=== PATIENT | male | born 1955 | race Caucasian/White ===

== ENCOUNTER 2019-05-28 11:51 | Emergency (ER) | payer MEDICARE, OTHER ==
[2019-05-28] MEDS: Sodium Chloride 0.9% 500 ML IV SCH (12:28)
--- NOTE | 2019-05-28 12:29 | EDM.PDOC ---
ED HPI GENERAL MEDICAL PROBLEM - General Chief Complaint: General Stated Complaint: weakness,nausea Time Seen by Provider: 05/28/19 11:55 Source of Information: Reports: Patient History Limitations: Reports: No Limitations - History of Present Illness INITIAL COMMENTS - FREE TEXT/NARRATIVE: Patient is a 63-year-old male who came in to the ER for evaluation of generalized weakness fatigue headaches some nausea chills just generally not feeling well and weakness this is been going on for about 3 days. Onset: Gradual Duration: Day(s):, Improving Location: Reports: Generalized Quality: Reports: Ache Severity: Mild Improves with: Reports: None Worsens with: Reports: Other (Activity) Context: Reports: Other Associated Symptoms: Reports: Fever/Chills, Nausea/Vomiting headache Pain Score (Numeric/FACES): 2 - Related Data Allergies Allergy/AdvReac Type Severity Reaction Status Date / Time clarithromycin [From Biaxin] Allergy Unknown unknown Verified 05/28/19 11:57 gabapentin [From Neurontin] Allergy Lightheaded Verified 05/28/19 11:57 ness NSAIDS (Non-Steroidal Allergy Renal Verified 05/28/19 11:57 Anti-Inflamma Failure Sulfa (Sulfonamide Allergy Rash Verified 05/28/19 11:57 Antibiotics) Home Meds: Home Meds Aspirin [Low Dose Aspirin EC] 81 mg PO DAILY 06/25/13 [History] Multivit-Min/FA/Lycopene/Lut [Centrum Silver] 1 each PO DAILY 06/25/13 [History] Mycophenolate [Myfortic] 720 mg PO BID 06/25/13 [History] Simvastatin 10 mg PO BEDTIME 06/25/13 [History] Sodium Bicarbonate 1,300 mg PO BID 06/25/13 [History] Cholecalciferol (Vitamin D3) [Vitamin D3] 1,000 unit PO DAILY 03/10/16 [History] Benzonatate 100 mg PO Q6HR PRN 04/01/16 [History] Furosemide 20 mg PO ASDIRECTED PRN 09/25/17 [History] Magnesium 500 mg PO DAILY 09/25/17 [History] Pantoprazole Sodium [Protonix] 40 mg PO DAILY 09/25/17 [History] predniSONE [Prednisone] 5 mg PO DAILY 10/12/17 [History] Tacrolimus [Prograf] 1.5 mg PO QPM 03/29/18 [History] Montelukast [Singulair] 10 mg PO DAILY PRN 10/14/18 [History] Acetaminophen [Tylenol Extra Strength] 500 mg PO Q6HR PRN 05/28/19 [History] Calcium Carbonate [Calcium] 1,000 mg PO DAILY 05/28/19 [History] Ibandronate Sodium [Boniva] 150 mg PO ASDIRECTED 05/28/19 [History] Linezolid [Zyvox] 600 mg PO Q12H 05/28/19 [History] Nystatin [Nystop] 60 gm TP ASDIRECTED PRN 05/28/19 [History] Polyethylene Glycol 3350 [MiraLAX] 1 tsp PO DAILY PRN 05/28/19 [History] Past Medical History HEENT History: Reports: Other (See Below) Other HEENT History: wears glasses Cardiovascular History: Reports: Hypertension, CO, Stents Respiratory History: Reports: Pneumonia, Recurrent Other Gastrointestinal History: NA Genitourinary History: Reports: Chronic Renal Insuffiency, Dialysis, UTI, Recurrent Endocrine/Metabolic History: Reports: Diabetes, Type I Oncologic (Cancer) History: Reports: Other (See Below) Other Oncologic History: skin cancer to ear, ear lobe, bilateral forearms and forehead - Infectious Disease History Infectious Disease History: Reports: Chicken Pox, Measles, MRSA Other Infectious Disease History: HX. MRSA to open wound on hurley - Past Surgical History GI Surgical History: Reports: Other (See Below) Male Surgical History: Reports: Other (See Below) Other Male Surgeries/Procedures: Nephrostomy Tube Musculoskeletal Surgical History: Reports: ORIF Social & Family History - Tobacco Use Smoking Status *Q: Never Smoker - Recreational Drug Use Recreational Drug Use: No ED ROS GENERAL - Review of Systems Review Of Systems: See Below Constitutional: Reports: Chills, Weakness HEENT: Reports: No Symptoms Respiratory: Reports: Cough, Sputum (Secondary to sinus drainage) Cardiovascular: Reports: No Symptoms Endocrine: Reports: No Symptoms GI/Abdominal: Reports: No Symptoms, Nausea, Other (Dry heaves) : Reports: No Symptoms Musculoskeletal: Reports: Muscle Stiffness Skin: Reports: No Symptoms Neurological: Reports: No Symptoms ED EXAM, GENERAL - Physical Exam Exam: See Below Free Text/Narrative:: Patient is a 62-year-old transplant patient who was seen not feeling well generalized aches and pains has been on Zyvox for allowing since Jovon evening was seen in the ER with the above symptoms at this time a UA showed his white count to be 17.2 Was Good BNP Was 4791 General Appearance: No Apparent Distress Ears: Normal External Exam Ear Exam: Bilateral Ear: Auricle Normal, Canal Normal, TM normal Nose: Normal Inspection Throat/Mouth: Normal Inspection, Normal Lips, Normal Teeth, Normal Gums, Normal Oropharynx, Normal Voice, No Airway Compromise Head: Atraumatic, Normocephalic Neck: Normal Inspection, Supple, Non-Tender, Full Range of Motion Respiratory/Chest: No Respiratory Distress, Lungs Clear, Normal Breath Sounds, No Accessory Muscle Use, Chest Non-Tender Cardiovascular: Normal Peripheral Pulses, Regular Rate, Rhythm, No Edema, No Gallop, No JVD, No Murmur, No Rub GI/Abdominal: Normal Bowel Sounds, Soft, Non-Tender, No Organomegaly, No Distention, No Abnormal Bruit, No Mass (Male) Exam: Deferred Rectal (Males) Exam: Deferred Extremities: Normal Inspection, Normal Range of Motion, Non-Tender, Normal Capillary Refill, No Pedal Edema Neurological: Alert, Oriented, CN II-XII Intact, Normal Cognition, Normal Gait, Normal Reflexes, No Motor/Sensory Deficits Psychiatric: Normal Affect Skin Exam: Warm Course - Vital Signs Last Recorded V/S: Last Vital Signs Temp 100.3 F 05/28/19 13:54 Pulse 83 05/28/19 11:54 Resp 18 05/28/19 11:54 BP 134/60 05/28/19 11:54 Pulse Ox 94 L 05/28/19 11:54 - Orders/Labs/Meds Orders: Active Orders 24 hr Category Date Time Status Chest 2V [CR] Stat Exams 05/28/19 12:20 Ordered CULTURE BLOOD [BC] Stat Lab 05/28/19 12:10 Ordered CULTURE URINE [RM] Stat Lab 05/28/19 12:14 Ordered Piperacillin/Tazobactam [Zosyn] 3.375 gm Med 05/28/19 14:00 Ordered Sodium Chloride 0.9% [Normal Saline] 100 ml IV Q6H Sodium Chloride 0.9% @ 100 MLS/HR(500ml) Med 05/28/19 12:15 Ordered Sodium Chloride 0.9% [Normal Saline] 500 ml IV ASDIRECTED Sodium Chloride 0.9% [Saline Flush] Med 05/28/19 12:12 Ordered 10 ml FLUSH ASDIRECTED PRN Saline Lock Insert [OM.PC] Stat Oth 05/28/19 12:12 Ordered Medication Orders Sodium Chloride (Normal Saline) 500 mls @ 100 mls/hr IV ASDIRECTED RIMA Last Admin: 05/28/19 12:28 Dose: 100 mls/hr Piperacillin Sod/Tazobactam (Sod 3.375 gm/ Sodium Chloride) 100 mls @ 200 mls/ hr IV Q6H [facility] Last Admin: 05/28/19 14:06 Dose: 200 mls/hr Sodium Chloride (Saline Flush) 10 ml FLUSH ASDIRECTED PRN PRN Reason: Keep Vein Open Last Admin: 05/28/19 12:32 Dose: 10 ml Labs: Laboratory Tests 05/28/19 05/28/19 05/28/19 Range/Units 12:20 12:20 12:55 WBC 17.2 H (4.0-10.2) K/uL RBC 4.58 (4.33-5.41) M/uL Hgb 12.7 L (13.1-16.8) g/dL Hct 42.2 (39.0-49.0) % MCV 92.1 D (84.0-98.0) fL MCH 27.7 L (28.2-33.3) pg MCHC 30.1 L (31.7-36.0) g/dL RDW 15.1 H (11.2-14.1) % Plt Count 178 (150-350) K/uL Neut % (Auto) 91.6 H (45.0-80.0) % Lymph % (Auto) 1.8 L (10.0-50.0) % [place] % (Auto) 6.5 (2.0-14.0) % Eos % (Auto) 0.0 (0.0-5.0) % Baso % (Auto) 0.1 (0.0-2.0) % Neut # (Auto) 15.72 H (1.40-7.00) K/uL Lymph # (Auto) 0.31 L (0.50-3.50) K/uL [place] # (Auto) 1.11 H (0.00-1.00) K/uL Eos # (Auto) 0.00 (0.00-0.50) K/uL Baso # (Auto) 0.01 (0.00-0.20) K/uL Sodium 136 (136-145) mmol/L Potassium 4.6 (3.5-5.1) mmol/L Chloride 99 (98-107) mmol/L Carbon Dioxide 25.3 (21.0-32.0) mmol/L BUN 36 H (7-18) mg/dL Creatinine 2.27 H (0.51-1.17) mg/dL Est Cr Clr Drug Dosing 34.39 mL/min Estimated GFR (MDRD) 29 mL/min Glucose 147 H (74-106) mg/dL Lactic Acid (0.4-2.0) mmol/L Calcium 8.1 L (8.5-10.1) mg/dL Magnesium 2.2 (1.8-2.4) mg/dL Total Bilirubin 0.8 (0.2-1.0) mg/dL AST 24 (15-37) U/L ALT 20 (12-78) U/L Alkaline Phosphatase 78 (46-116) IU/L NT-Pro-B Natriuret Pep (0-125) pg/mL Total Protein 7.1 (6.4-8.2) g/dL Albumin 3.1 L (3.4-5.0) g/dL Specimen Type Urinneph Urine Color Yellow Urine Appearance Slightly cloudy Urine pH 7.0 (5.0-9.0) Ur Specific [place] 1.015 (1.005-1.030) Urine Protein 100 H (NEGATIVE) mg/dL Urine Glucose (UA) Negative (NEGATIVE) mg/dL Urine Ketones Negative (NEGATIVE) mg/dL Urine Occult Blood Large H (NEGATIVE) Urine Nitrite Negative (NEGATIVE) Urine Bilirubin Negative (NEGATIVE) Urine Urobilinogen 0.2 (0.2-1.0) E.U./dL Ur Leukocyte Esterase Small H (NEGATIVE) Urine RBC 10-20 H /HPF Urine WBC 50-75 H /HPF Urine Bacteria Many H (NONE TO FEW) /HPF 05/28/19 05/28/19 Range/Units 12:59 12:59 WBC (4.0-10.2) K/uL RBC (4.33-5.41) M/uL Hgb (13.1-16.8) g/dL Hct (39.0-49.0) % MCV (84.0-98.0) fL MCH (28.2-33.3) pg MCHC (31.7-36.0) g/dL RDW (11.2-14.1) % Plt Count (150-350) K/uL Neut % (Auto) (45.0-80.0) % Lymph % (Auto) (10.0-50.0) % [place] % (Auto) (2.0-14.0) % Eos % (Auto) (0.0-5.0) % Baso % (Auto) (0.0-2.0) % Neut # (Auto) (1.40-7.00) K/uL Lymph # (Auto) (0.50-3.50) K/uL [place] # (Auto) (0.00-1.00) K/uL Eos # (Auto) (0.00-0.50) K/uL Baso # (Auto) (0.00-0.20) K/uL Sodium (136-145) mmol/L Potassium (3.5-5.1) mmol/L Chloride (98-107) mmol/L Carbon Dioxide (21.0-32.0) mmol/L BUN (7-18) mg/dL Creatinine (0.51-1.17) mg/dL Est Cr Clr Drug Dosing mL/min Estimated GFR (MDRD) mL/min Glucose (74-106) mg/dL Lactic Acid 1.6 (0.4-2.0) mmol/L Calcium (8.5-10.1) mg/dL Magnesium (1.8-2.4) mg/dL Total Bilirubin (0.2-1.0) mg/dL AST (15-37) U/L ALT (12-78) U/L Alkaline Phosphatase (46-116) IU/L NT-Pro-B Natriuret Pep 4791 H (0-125) pg/mL Total Protein (6.4-8.2) g/dL Albumin (3.4-5.0) g/dL Specimen Type Urine Color Urine Appearance Urine pH (5.0-9.0) Ur Specific [place] (1.005-1.030) Urine Protein (NEGATIVE) mg/dL Urine Glucose (UA) (NEGATIVE) mg/dL Urine Ketones (NEGATIVE) mg/dL Urine Occult Blood (NEGATIVE) Urine Nitrite (NEGATIVE) Urine Bilirubin (NEGATIVE) Urine Urobilinogen (0.2-1.0) E.U./dL Ur Leukocyte Esterase (NEGATIVE) Urine RBC /HPF Urine WBC /HPF Urine Bacteria (NONE TO FEW) /HPF Meds: Medications Generic Name Dose Route Start Last Admin Trade Name Freq PRN Reason Stop Dose Admin Sodium Chloride 500 mls @ 100 mls/hr 05/28/19 12:15 05/28/19 12:28 Normal Saline IV 100 mls/hr ASDIRECTED RIMA Administration Piperacillin Sod/Tazobactam 100 mls @ 200 mls/hr 05/28/19 14:00 05/28/19 14: 06 Sod 3.375 gm/ Sodium Chloride IV 200 mls/hr Q6H RIMA Administration Sodium Chloride 10 ml 05/28/19 12:12 05/28/19 12:32 Saline Flush FLUSH 10 ml ASDIRECTED PRN Administration Keep Vein Open Discontinued Medications Generic Name Dose Route Start Last Admin Trade Name Freq PRN Reason Stop Dose Admin Ondansetron HCl 4 mg 05/28/19 12:29 05/28/19 12:31 Zofran IVPUSH 05/28/19 12:30 4 mg ONETIME ONE Administration Departure - Departure Time of Disposition: 14:27 Disposition: DC/Tfer to [facility] Clinical Impression: CHF, Congestive heart failure - Discharge Information *PRESCRIPTION DRUG MONITORING PROGRAM REVIEWED*: No *COPY OF PRESCRIPTION DRUG MONITORING REPORT IN PATIENT JOSEPH: No Referrals: Maria D Ariza [employer] [Primary Care Provider] - Forms: ED Department Discharge - My Orders Last 24 Hours: My Active Orders 05/28/19 12:10 CULTURE BLOOD [BC] Stat 05/28/19 12:12 Sodium Chloride 0.9% [Saline Flush] 10 ml FLUSH ASDIRECTED PRN Saline Lock Insert [OM.PC] Stat 05/28/19 12:14 CULTURE URINE [RM] Stat 05/28/19 12:15 Sodium Chloride 0.9% @ 100 MLS/HR(500ml) Sodium Chloride 0.9% [Normal Saline] 500 ml IV ASDIRECTED 05/28/19 12:20 Chest 2V [CR] Stat 05/28/19 14:00 Piperacillin/Tazobactam [Zosyn] 3.375 gm Sodium Chloride 0.9% [Normal Saline] 100 ml IV Q6H - Assessment/Plan Last 24 Hours: My Active Orders 05/28/19 12:10 CULTURE BLOOD [BC] Stat 05/28/19 12:12 Sodium Chloride 0.9% [Saline Flush] 10 ml FLUSH ASDIRECTED PRN Saline Lock Insert [OM.PC] Stat 05/28/19 12:14 CULTURE URINE [RM] Stat 05/28/19 12:15 Sodium Chloride 0.9% @ 100 MLS/HR(500ml) Sodium Chloride 0.9% [Normal Saline] 500 ml IV ASDIRECTED 05/28/19 12:20 Chest 2V [CR] Stat 05/28/19 14:00 Piperacillin/Tazobactam [Zosyn] 3.375 gm Sodium Chloride 0.9% [Normal Saline] 100 ml IV Q6H
[2019-05-28] MEDS: Ondansetron 4 MG/2 ML SDV IVPUSH ONE (12:31)
[2019-05-28] MEDS: Sodium Chloride 0.9% 10 ML Syringe FLUSH PRN (12:32)
[2019-05-28] MEDS: Piperacillin/Tazobactam 3.375 GM in Sodium Chloride 0.9% 100 ML IV SCH (14:06)
[2019-05-28] MEDS: Acetaminophen 325 MG Tab PO PRN (14:43)
[2019-05-28 15:01] VITALS: BP 127/59; PULSE 95
== END 2019-05-28 14:54 ==
LOC: LL.ED 11:51
DX: I13.0 Hypertensive heart and chronic kidney disease with heart failure and stage 1 through stage 4 chronic kidney disease, or unspecified chronic kidney disease (principal); I50.9 Heart failure, unspecified; E10.22 Type 1 diabetes mellitus with diabetic chronic kidney disease; N18.9 Chronic kidney disease, unspecified; I25.2 Old myocardial infarction; Z79.82 Long term (current) use of aspirin; Z79.899 Other long term (current) drug therapy; Z88.1 Allergy status to other antibiotic agents; Z88.2 Allergy status to sulfonamides; Z88.6 Allergy status to analgesic agent; Z88.8 Allergy status to other drugs, medicaments and biological substances; Z99.2 Dependence on renal dialysis; Z95.5 Presence of coronary angioplasty implant and graft
CPT/HCPCS: 36415; 71046; 80053; 81001; 83605; 83735; 83880; 85025; 87040; 87086; 87088; 87186; 96361; 96365; 96375; 99285-25; A9270-GY; J2405; J2543; J7040; J7050

== ENCOUNTER → 2019-06-09 | Outpatient (CLI) | payer MEDICARE, OTHER | LOC: LL.LAB 08:18 | PROVIDERS: ATTEND Internal Medicine | DX: Z48.22 Encounter for aftercare following kidney transplant (principal); Z79.899 Other long term (current) drug therapy | CPT/HCPCS: 80197 ==

== ENCOUNTER 2021-05-17 11:35 | Inpatient (IN) | payer MEDICARE, OTHER ==
[2021-05-17] MEDS ORDERED: Lactated Ringers 1,000 ML IV ONE ×3 (12:08→14:08)
[2021-05-17] MEDS ORDERED: Ondansetron 4 MG/2 ML SDV IV ONE (12:08)
[2021-05-17] MEDS ORDERED: Cefepime 2 GM in Sodium Chloride 0.9% 100 ML IV ONE (12:08)
[2021-05-17 13:47] LABS: ANION GAP 14.2 meq/L (7-15)
--- NOTE | 2021-05-17 14:04 | EDM.PDOC ---
ED HPI GENERAL MEDICAL PROBLEM - General Chief Complaint: General Stated Complaint: hypotention,Nausea,Weakness Time Seen by Provider: 05/17/21 12:07 Source of Information: Reports: Patient History Limitations: Reports: No Limitations - History of Present Illness INITIAL COMMENTS - FREE TEXT/NARRATIVE: Patient comes emergency department today from the clinic for further evaluations of hypotension and concerns for urinary tract infection. Patient has a longstanding history of a kidney and pancreas transplant as well as CKD 3. He has a urostomy tube he relates that drains his bladder due to recurrent urinary tract infections and sepsis. Last time he had sepsis and UTI was about 2019. Yesterday he had some generalized malaise and fatigue. Today he has developed generalized weakness some nausea chills. No fever. No cough or congestion or difficulty breathing. No chest pain palpitation. No lightheadedness or dizziness or syncope. No abdominal pain. No black tarry stools. No rash lesions or sores. He has concerns for a urinary tract infection as this is how he typically feels. His blood pressure as of note in the clinic was in the eighties systolically. right heel Pain Score (Numeric/FACES): 2 - Related Data Allergies Allergy/AdvReac Type Severity Reaction Status Date / Time clarithromycin [From Biaxin] Allergy Unknown unknown Verified 05/17/21 11:47 gabapentin [From Neurontin] Allergy Lightheaded Verified 05/17/21 11:47 ness NSAIDS (Non-Steroidal Allergy Renal Verified 05/17/21 11:47 Anti-Inflamma Failure Sulfa (Sulfonamide Allergy Rash Verified 05/17/21 11:47 Antibiotics) Home Meds: Home Meds Aspirin [Low Dose Aspirin EC] 81 mg PO DAILY 06/25/13 [History] Multivit-Min/FA/Lycopene/Lut [Centrum Silver] 1 each PO DAILY 06/25/13 [History] Mycophenolate [Myfortic] 720 mg PO Q12HR 06/25/13 [History] Simvastatin 10 mg PO BEDTIME 06/25/13 [History] Sodium Bicarbonate 1,300 mg PO BID 06/25/13 [History] Cholecalciferol (Vitamin D3) [Vitamin D3] 2,000 unit PO DAILY 03/10/16 [History] Benzonatate 1 - 2 cap PO TID PRN 04/01/16 [History] Furosemide 20 mg PO DAILY PRN 09/25/17 [History] Pantoprazole Sodium [Protonix] 40 mg PO DAILY 09/25/17 [History] predniSONE [Prednisone] 5 mg PO DAILY 10/12/17 [History] Tacrolimus [Prograf] 1.5 mg PO Q12HR 03/29/18 [History] Acetaminophen [Tylenol Extra Strength] 500 mg PO Q6HR PRN 05/28/19 [History] Ibandronate Sodium [Boniva] 150 mg PO Q30D 05/28/19 [History] Nystatin [Nystop] 60 gm TP ASDIRECTED PRN 05/28/19 [History] Amoxicillin 4 tab PO ASDIRECTED PRN 08/20/20 [History] Ondansetron [Zofran ODT] 4 mg PO ASDIRECTED PRN 08/20/20 [History] Past Medical History HEENT History: Reports: Other (See Below) Other HEENT History: wears glasses Cardiovascular History: Reports: Hypertension, [place], Stents Respiratory History: Reports: Pneumonia, Recurrent Other Gastrointestinal History: NA Genitourinary History: Reports: Chronic Renal Insuffiency, Dialysis, UTI, Recurrent Endocrine/Metabolic History: Reports: Diabetes, Type I Oncologic (Cancer) History: Reports: Other (See Below) Other Oncologic History: skin cancer to ear, ear lobe, bilateral forearms and forehead - Infectious Disease History Infectious Disease History: Reports: Chicken Pox, Measles, MRSA Other Infectious Disease History: HX. MRSA to open wound on hurley - Past Surgical History GI Surgical History: Reports: Other (See Below) Other GI Surgeries/Procedures: Pancreatic transplant Male Surgical History: Reports: Other (See Below) Other Male Surgeries/Procedures: Nephrostomy Tube Musculoskeletal Surgical History: Reports: ORIF Other Musculoskeletal Surgeries/Procedures:: leg surgery ED ROS GENERAL - Review of Systems Review Of Systems: Comprehensive ROS is negative, except as noted in HPI. ED EXAM, GENERAL - Physical Exam Exam: See Below Free Text/Narrative:: He is pale and somewhat ill-appearing. He is alert appropriate. He needs assistance to get up to the cot. Exam Limited By: No Limitations General Appearance: Alert, WD/WN, Obese Eye Exam: Bilateral Eye: PERRL Throat/Mouth: No: Normal Inspection (Oral mucosa is dry) Head: Atraumatic, Normocephalic Neck: Normal Inspection, Supple Respiratory/Chest: No Respiratory Distress, Lungs Clear, Normal Breath Sounds, No Accessory Muscle Use, Chest Non-Tender Cardiovascular: Normal Peripheral Pulses, Regular Rate, Rhythm Peripheral Pulses: 1+: Radial (L), Radial (R) GI/Abdominal: Other (Rather large obese abd. None distended no guarding rebound or tenderness. ) (Male) Exam: Deferred Rectal (Males) Exam: Deferred Extremities: Pedal Edema (1+ edema to bilateral lower extremities. ) Neurological: Alert, Oriented, Normal Cognition, No Motor/Sensory Deficits Psychiatric: Normal Affect, Normal Mood Skin Exam: No Rash, Cool, Diaphoretic, Pallor Course - Vital Signs Last Recorded V/S: Last Vital Signs Temp 98.7 F 05/18/21 22:00 Pulse 60 05/18/21 22:00 Resp 18 05/18/21 22:00 BP 166/61 H 05/18/21 22:00 Pulse Ox 99 05/18/21 22:00 - Orders/Labs/Meds Orders: Medication Orders Acetaminophen (Acetaminophen 325 Mg Tab) 650 mg PO Q4H PRN PRN Reason: Pain (Mild 1-3)/fever Aspirin (Aspirin 81 Mg Tab.Ec) 81 mg PO DAILY [facility] Last Admin: 05/18/21 09:11 Dose: 81 mg Documented by: AICHA Cholecalciferol (Cholecalciferol (Vitamin D3) 25 Mcg Tab) 50 mcg PO DAILY [facility] Last Admin: 05/18/21 09:12 Dose: 50 mcg Documented by: AICHA Enoxaparin Sodium (Enoxaparin 40 Mg/0.4 Ml Syringe) 40 mg SUBCUT DAILY [facility] Last Admin: 05/18/21 09:11 Dose: 40 mg Documented by: AICHA Lactated Ringer's (Ringers, Lactated) 1,000 mls @ 150 mls/hr IV ASDIRECTED [facility] Last Admin: 05/18/21 20:36 Dose: 150 mls/hr Documented by: Infusion: 05/18/21 19:24 Dose: 150 mls/hr Documented by: Admin: 05/18/21 12:43 Dose: 150 mls/hr Documented by: Infusion: 05/18/21 02:50 Dose: 150 mls/hr Documented by: Admin: 05/17/21 20:09 Dose: 150 mls/hr Documented by: MERLY Cefepime HCl 2 gm/ Sodium (Chloride) 100 mls @ 200 mls/hr IV DAILY@1300 [facility] Last Admin: 05/18/21 13:14 Dose: 200 mls/hr Documented by: SABRINA Influenza Virus Vaccine (Pharmacy To Dose - Influenza Vaccine) 1 each IM ONETIME ONE Stop: 05/17/21 22:56 Multivitamins/Minerals (Beta-Carotene (Vitamin A) W/Vitamin C & E Plus Minerals Tab) 1 tab PO DAILY [facility] Last Admin: 05/18/21 09:12 Dose: 1 tab Documented by: AICHA Mycophenolic Acid (180mg Dr Tabs) 720 mg PO Q12HR [facility] Last Admin: 05/18/21 20:31 Dose: 720 mg Documented by: Admin: 05/18/21 12:44 Dose: Not Given Documented by: Admin: 05/18/21 12:38 Dose: Not Given Documented by: AICHA Ondansetron HCl (Ondansetron 4 Mg/2 Ml Sdv) 4 mg IVPUSH Q8H PRN PRN Reason: Nausea/Vomiting Pantoprazole Sodium (Pantoprazole 40 Mg Tab.Cr) 40 mg PO DAILY [facility] Last Admin: 05/18/21 09:12 Dose: 40 mg Documented by: AICHA Prednisone (Prednisone 5 Mg Tab) 5 mg PO DAILY [facility] Last Admin: 05/18/21 09:11 Dose: 5 mg Documented by: AICHA Simvastatin (Simvastatin 10 Mg Tab) 10 mg PO BEDTIME [facility] Last Admin: 05/18/21 20:30 Dose: 10 mg Documented by: Admin: 05/17/21 19:51 Dose: 10 mg Documented by: MERLY Sodium Bicarbonate (Sodium Bicarbonate 650 Mg Tab) 1,300 mg PO BID [facility] Last Admin: 05/18/21 17:53 Dose: 1,300 mg Documented by: Admin: 05/18/21 09:12 Dose: 1,300 mg Documented by: AICHA Sodium Chloride (Sodium Chloride 0.9% 10 Ml Syringe) 10 ml FLUSH ASDIRECTED PRN PRN Reason: Keep Vein Open Last Admin: 05/18/21 20:36 Dose: 10 ml Documented by: Admin: 05/17/21 20:11 Dose: 10 ml Documented by: MERLY Tacrolimus (Tacrolimus 0.5 Mg Cap) 1.5 mg PO Q12HR [facility] Last Admin: 05/18/21 20:30 Dose: 1.5 mg Documented by: Admin: 05/18/21 09:11 Dose: 1.5 mg Documented by: [id number] Admin: 05/17/21 19:51 Dose: 1.5 mg Documented by: MERLY Labs: Laboratory Tests 05/17/21 05/17/21 05/17/21 Range/Units 12:15 12:53 12:53 WBC 18.5 H (4.0-10.2) K/uL RBC 4.11 L (4.33-5.41) M/uL Hgb 11.6 L (13.1-16.8) g/dL Hct 37.3 L (39.0-49.0) % MCV 90.8 (84.0-98.0) fL MCH 28.2 (28.2-33.3) pg MCHC 31.1 L (31.7-36.0) g/dL RDW 14.9 H (11.2-14.1) % Plt Count 192 (150-350) K/uL Neut % (Auto) 90.8 H (45.0-80.0) % Lymph % (Auto) 2.4 L (10.0-50.0) % [place] % (Auto) 6.6 (2.0-14.0) % Eos % (Auto) 0.1 (0.0-5.0) % Baso % (Auto) 0.1 (0.0-2.0) % Neut # (Auto) 16.82 H (1.40-7.00) K/uL Lymph # (Auto) 0.44 L (0.50-3.50) K/uL [place] # (Auto) 1.23 H (0.00-1.00) K/uL Eos # (Auto) 0.01 (0.00-0.50) K/uL Baso # (Auto) 0.02 (0.00-0.20) K/uL Sodium 130 L D (136-145) mmol/L Potassium 4.3 (3.5-5.1) mmol/L Chloride 97 L (98-107) mmol/L Carbon Dioxide 23.1 (21.0-32.0) mmol/L Anion Gap 14.2 (7-15) meq/L BUN 44 H (7-18) mg/dL Creatinine 2.50 H (0.51-1.17) mg/dL Est Cr Clr Drug Dosing 30.42 mL/min Estimated GFR (MDRD) 26 mL/min Glucose 168 H (70-99) mg/dL Lactic Acid (0.4-2.0) mmol/L Calcium 8.4 L (8.5-10.1) mg/dL Total Bilirubin 0.8 (0.2-1.0) mg/dL AST 10 L (15-37) U/L ALT 15 (12-78) U/L Alkaline Phosphatase 83 (46-116) IU/L Troponin I High Sens (<=76) ng/L C-Reactive Protein 31.7 H (<=0.9) mg/dL Total Protein 6.5 (6.4-8.2) g/dL Albumin 3.0 L (3.4-5.0) g/dL Specimen Type Urinneph Urine Color Yellow Urine Appearance Slightly cloudy Urine pH 5.0 (5.0-9.0) Ur Specific [place] 1.015 (1.005-1.030) Urine Protein 100 H (NEGATIVE) mg/dL Urine Glucose (UA) Negative (NEGATIVE) mg/dL Urine Ketones Negative (NEGATIVE) mg/dL Urine Occult Blood Moderate H (NEGATIVE) Urine Nitrite Negative (NEGATIVE) Urine Bilirubin Negative (NEGATIVE) Urine Urobilinogen 0.2 (0.2-1.0) E.U./dL Ur Leukocyte Esterase Small H (NEGATIVE) Urine RBC 10-20 H /HPF Urine WBC 40-50 H /HPF Ur Epithelial Cells Few /LPF Urine Bacteria Many H (NONE TO FEW) /HPF SARS-CoV-2 RNA (FREDI) (NEGATIVE) 05/17/21 05/17/21 05/17/21 Range/Units 12:53 12:53 15:00 WBC (4.0-10.2) K/uL RBC (4.33-5.41) M/uL Hgb (13.1-16.8) g/dL Hct (39.0-49.0) % MCV (84.0-98.0) fL MCH (28.2-33.3) pg MCHC (31.7-36.0) g/dL RDW (11.2-14.1) % Plt Count (150-350) K/uL Neut % (Auto) (45.0-80.0) % Lymph % (Auto) (10.0-50.0) % [place] % (Auto) (2.0-14.0) % Eos % (Auto) (0.0-5.0) % Baso % (Auto) (0.0-2.0) % Neut # (Auto) (1.40-7.00) K/uL Lymph # (Auto) (0.50-3.50) K/uL [place] # (Auto) (0.00-1.00) K/uL Eos # (Auto) (0.00-0.50) K/uL Baso # (Auto) (0.00-0.20) K/uL Sodium (136-145) mmol/L Potassium (3.5-5.1) mmol/L Chloride (98-107) mmol/L Carbon Dioxide (21.0-32.0) mmol/L Anion Gap (7-15) meq/L BUN (7-18) mg/dL Creatinine (0.51-1.17) mg/dL Est Cr Clr Drug Dosing mL/min Estimated GFR (MDRD) mL/min Glucose (70-99) mg/dL Lactic Acid 1.3 (0.4-2.0) mmol/L Calcium (8.5-10.1) mg/dL Total Bilirubin (0.2-1.0) mg/dL AST (15-37) U/L ALT (12-78) U/L Alkaline Phosphatase (46-116) IU/L Troponin I High Sens 28 (<=76) ng/L C-Reactive Protein (<=0.9) mg/dL Total Protein (6.4-8.2) g/dL Albumin (3.4-5.0) g/dL Specimen Type Urine Color Urine Appearance Urine pH (5.0-9.0) Ur Specific [place] (1.005-1.030) Urine Protein (NEGATIVE) mg/dL Urine Glucose (UA) (NEGATIVE) mg/dL Urine Ketones (NEGATIVE) mg/dL Urine Occult Blood (NEGATIVE) Urine Nitrite (NEGATIVE) Urine Bilirubin (NEGATIVE) Urine Urobilinogen (0.2-1.0) E.U./dL Ur Leukocyte Esterase (NEGATIVE) Urine RBC /HPF Urine WBC /HPF Ur Epithelial Cells /LPF Urine Bacteria (NONE TO FEW) /HPF SARS-CoV-2 RNA (FREDI) Negative (NEGATIVE) Meds: Medications Generic Name Dose Route Start Last Admin Trade Name Freq PRN Reason Stop Dose Admin Acetaminophen 650 mg 05/17/21 18:48 Acetaminophen 325 Mg Tab PO Q4H PRN Pain (Mild 1-3)/fever Aspirin 81 mg 05/18/21 08:00 05/18/21 09:11 Aspirin 81 Mg Tab.Ec PO 81 mg DAILY RIMA Administration Cholecalciferol 50 mcg 05/18/21 08:00 05/18/21 09:12 Cholecalciferol (Vitamin D3) 25 Mcg Tab PO 50 mcg DAILY [facility]IMA Administration Enoxaparin Sodium 40 mg 05/18/21 08:00 05/18/21 09:11 Enoxaparin 40 Mg/0.4 Ml Syringe SUBCUT 40 mg DAILY [facility]IMA Administration Lactated Ringer's 1,000 mls @ 150 mls/hr 05/17/21 19:00 05/18/21 20:36 Ringers, Lactated IV 150 mls/hr ASDIRECTED RIMA Administration Cefepime HCl 2 gm/ Sodium 100 mls @ 200 mls/hr 05/18/21 13:00 05/18/21 13:14 Chloride IV 200 mls/hr DAILY@1300 [facility] Administration Influenza Virus Vaccine 1 each 05/17/21 22:55 Pharmacy To Dose - Influenza Vaccine IM 05/17/21 22:56 ONETIME ONE Multivitamins/Minerals 1 tab 05/18/21 08:00 05/18/21 09:12 Beta-Carotene (Vitamin A) W/Vitamin C & E Plus Minerals Tab PO 1 tab DAILY [facility] Administration Mycophenolic Acid 720 mg 05/17/21 20:00 05/18/21 20:[address] Tabs PO 720 mg Q12HR RIMA Administration Ondansetron HCl 4 mg 05/17/21 17:07 Ondansetron 4 Mg/2 Ml Sdv IVPUSH Q8H PRN Nausea/Vomiting Pantoprazole Sodium 40 mg 05/18/21 08:00 05/18/21 09:12 Pantoprazole 40 Mg Tab.Cr PO 40 mg DAILY [facility]IM[facility] Administration Prednisone 5 mg 05/18/21 08:00 05/18/21 09:11 Prednisone 5 Mg Tab PO 5 mg DAILY [facility]IM[facility] Administration Simvastatin 10 mg 05/17/21 20:00 05/18/21 20:30 Simvastatin 10 Mg Tab PO 10 mg BEDTIME RIMA Administration Sodium Bicarbonate 1,300 mg 05/18/21 08:00 05/18/21 17:53 Sodium Bicarbonate 650 Mg Tab PO 1,300 mg BID RIAM Administration Sodium Chloride 10 ml 05/17/21 12:08 05/18/21 20:36 Sodium Chloride 0.9% 10 Ml Syringe FLUSH 10 ml ASDIRECTED PRN Administration Keep Vein Open Tacrolimus 1.5 mg 05/17/21 20:00 05/18/21 20:30 Tacrolimus 0.5 Mg Cap PO 1.5 mg Q12HR RIMA Administration Discontinued Medications Generic Name Dose Route Start Last Admin Trade Name Freq PRN Reason Stop Dose Admin Cefepime HCl 2 gm 05/18/21 13:00 Cefepime 2 Gm Vial IVPUSH DAILY RIMA Lactated Ringer's 1,000 mls @ 1,000 mls/hr 05/17/21 12:08 05/17/21 12:25 Ringers, Lactated IV 05/17/21 13:07 1,000 mls/hr .BOLUS ONE Administration Cefepime HCl 2 gm/ Sodium 100 mls @ 200 mls/hr 05/17/21 12:08 05/17/21 12:34 Chloride IV 05/17/21 12:09 200 mls/hr ONETIME ONE Administration Lactated Ringer's 1,000 mls @ 1,000 mls/hr 05/17/21 13:26 05/17/21 13:56 Ringers, Lactated IV 05/17/21 14:25 1,000 mls/hr .BOLUS ONE Administration Lactated Ringer's 1,000 mls @ 1,000 mls/hr 05/17/21 14:08 05/17/21 14:31 Ringers, Lactated IV 05/17/21 15:07 1,000 mls/hr .BOLUS ONE Administration Ondansetron HCl 4 mg 05/17/21 12:08 05/17/21 12:34 Ondansetron 4 Mg/2 Ml Sdv IV 05/17/21 12:09 4 mg ONETIME ONE Administration - Radiology Interpretation Free Text/Narrative:: Hyponatremia hyponatremia CT scan abdomen pelvis without contrast due to the renal failure. Findings consistent with renal pancreas transplant without significant change since 07-17-2017. Well positioned percutaneous nephrostomy and ureteral stent in the left lower quadrant renal transplant. Increased attenuation of the gallbladder may be related to vicarious excretion of contrast if the patient has received recent intravenous contrast or complete filling of the gallbladder with gallstones. No evidence of acute cholecystitis. - Re-Assessments/Exams Free Text/Narrative Re-Assessment/Exam: I have concerns for severe sepsis with this patient initially upon presentation. IV was established labs are drawn although this was somewhat technically difficult as the patient has very little IV access. I had to use bedside ultrasound with multiple attempts to obtain IV access. Sepsis protocol initiated blood cultures x2. 2 L of LR initially ordered for resuscitation Urine obtained from nephrostomy tube and cultured. Cefepime 2 g IV push. The patient did respond well to fluid resuscitation his skin improved to pink warm dry. His color improved. His blood pressure improved as well. Laboratory evaluation with a CBC of 18.5, hemoglobin 11.6, platelet 192. CMP with a sodium of 130, potassium 4.3 chloride 97. Creatinine 2.5 with a BUN of 44. It appears that the patient's baseline kidney function is about 1.8. His lactic acid is normal at 1.3. C-reactive protein is 31.7. Albumin is 3.0. Urinalysis with moderate mount of blood small amount of leukocyte esterase, U RBCs 1020, U WBCs 4050 U bacteria many. Culture pending. Covid negative. Chest x-ray per radiology shows upper and left lung field pulmonary vascular appears somewhat prominent with mildly prominent interstitial markings suggesting the possibility of a mild CHF and interstitial lung edema. A definite active infiltrate or effusion was not identified although somewhat heavy markings of the left lung base make it difficult to exclude minimal patchy bronchopneumonia there. The patient subsequently received 3 L of lactated Ringer's in the emergency department. His blood pressure stabilized. The choice of cefepime was chosen due to the known history of multiple resistant urinary tract infections in the past. He does have a urostomy tube in place that was just changed a couple of weeks ago. We are unable to change his urostomy tube here and this will need to be changed during his course of therapy. We are unable to transfer him at this time to higher level care as there is no beds. We will work on plan to change his tube as this is most likely the site of his infection and will return if it is not changed out. I discussed the findings and concerns with the patient with severe sepsis. We will admit him into inpatient care here for continued management and aggressive hydration treatment for sepsis. He is comfortable with this plan his questions are answered. Departure - Departure Time of Disposition: 16:14 Disposition: Admitted As Inpatient 66 Clinical Impression: Severe sepsis with acute organ dysfunction, Acute kidney injury superimposed on chronic kidney disease, Hyponatremia, Complicated urinary tract infection, Indwelling catheter present on admission - Discharge Information Sepsis Event Note (ED) - Evaluation Sepsis Screening Result: No Definite Risk - Problem List & Annotations (1) Morbid obesity SNOMED Code(s): 462458526 Code(s): E66.01 - MORBID (SEVERE) OBESITY DUE TO EXCESS CALORIES Status: Acute Current Visit: Yes Annotation/Comment:: Discussed with patient a ppropriate healthy eating habits as well as exercise. (2) Acute on chronic diastolic CHF (congestive heart failure) SNOMED Code(s): 578392128, 377329760 Code(s): I50.33 - ACUTE ON CHRONIC DIASTOLIC (CONGESTIVE) HEART FAILURE Status: Acute Current Visit: Yes Annotation/Comment:: We will continue the patient's home medications. He does have a mild amount of congestive heart failure question on his chest x-ray. Although in the presence of severe sepsis we will still treat him aggressively with fluid resuscitation monitor him closely for worsening respiratory status. (3) Kidney transplant recipient SNOMED Code(s): 742982466, 408053451 Code(s): Z94.0 - KIDNEY TRANSPLANT STATUS Status: Acute Current Visit: No Annotation/Comment:: We will continue his immunosuppressive therapy from home. (4) Acute hyponatremia SNOMED Code(s): 8131769 Code(s): E87.1 - HYPO-OSMOLALITY AND HYPONATREMIA Status: Acute Priority: Low Current Visit: No Annotation/Comment:: Is one of the reasons for medication sodium on presentation was 130. We will continue resuscitation with lactated Ringer's at this time which is best for her severe sepsis. Daily labs monitor (5) Acute kidney injury superimposed on chronic kidney disease SNOMED Code(s): 50712304 Code(s): N17.9 - ACUTE KIDNEY FAILURE, UNSPECIFIED; N18.9 - CHRONIC KIDNEY DISEASE, UNSPECIFIED Status: Acute Current Visit: Yes Annotation/Comment:: It appears that his baseline kidney function is about 1.6-1.8. It is 2.5 on admission. He does not have any urinary retention his bladder scan is normal with good drainage from his nephrostomy tube. This is most likely due to the severe sepsis. We will hydrate him aggressively and monitor daily. (6) Complicated urinary tract infection SNOMED Code(s): 94452111 Code(s): N39.0 - URINARY TRACT INFECTION, SITE NOT SPECIFIED Status: Acute Current Visit: Yes Annotation/Comment:: Patient has a longstanding nephrostomy tube in place. Cultures are pending. 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 Blood cultures pending. Urine culture pending. (7) Hyponatremia SNOMED Code(s): 97805357 Code(s): E87.1 - HYPO-OSMOLALITY AND HYPONATREMIA Status: Acute Current Visit: Yes (8) Indwelling catheter present on admission SNOMED Code(s): 859559888 Code(s): Z96.0 - PRESENCE OF UROGENITAL IMPLANTS Status: Acute Current V isit: Yes Annotation/Comment:: The nephrostomy tube was recently exchanged. This will also need to be exchanged in the presence of acute sepsis from urinary tract infection. We will work with Raman in [place] to see what we are able to get this changed out sooner than later. He is scheduled on 05-19-21 for a change out of the tube. Hopefully we will be able to discharge him from the hospital at that time and he can have it changed out that day. (9) Severe sepsis with acute organ dysfunction SNOMED Code(s): 70707077 Code(s): A41.9 - SEPSIS, UNSPECIFIED ORGANISM; R65.20 - SEVERE SEPSIS WITHOUT SEPTIC SHOCK Status: Acute Current Visit: Yes Annotation/Comment:: Patient has severe sepsis with septic shock responsive to fluid resuscitation. Not requiring vasopressor therapy. He does have acute organ dysfunction with acute kidney injury. He was resuscitated with 30 mils per kilogram of lactated Ringer's in the emergency department. He is pancultured. Covered with cefepime. Wait for cultures for de-escalation of therapy. - Problem List Review Problem List Initiated/Reviewed/Updated: Yes - Assessment/Plan Admission H&P: Please use this note as an admission H&P Assessment:: Assessment and plan. This patient will be admitted to the inpatient services under my care. Due to the above problems. I anticipate 2 nights of hospitalization stay at minimum due to his chronic comorbidities as well as the concerns of his history of resistant urinary tract infection. We will also work to get his nephrostomy tube changed out sooner than later. We will monitor him closely while he is in the hospital. VTE: Enoxaparin 30 mg daily. Teds. Sepsis: This patient is in severe sepsis. Blood cultures are pending. Urine cultures pending. Cefepime 2 g every 24 hours renally dosed. Aggressive fluid management. CODE STATUS: Full.
[2021-05-17] MEDS ORDERED: Ondansetron 4 MG/2 ML SDV IVPUSH PRN (17:07)
[2021-05-17] MEDS ORDERED: Acetaminophen 325 MG Tab PO PRN (18:48)
[2021-05-17] MEDS: Tacrolimus 0.5 MG Cap PO SCH (19:51)
[2021-05-17] MEDS: Simvastatin 10 MG Tab PO SCH (19:51)
[2021-05-17] MEDS: Lactated Ringers 1,000 ML IV SCH (20:09)
[2021-05-17] MEDS: Sodium Chloride 0.9% 10 ML Syringe FLUSH PRN (20:11)
[2021-05-18 08:02] LABS: ANION GAP 14.9 meq/L (7-15)
[2021-05-18] MEDS: Enoxaparin 40 MG/0.4 ML Syringe SUBCUT SCH (09:11)
[2021-05-18] MEDS: Tacrolimus 0.5 MG Cap PO SCH ×2 (09:11→20:30)
[2021-05-18] MEDS: predniSONE 5 MG Tab PO SCH (09:11)
[2021-05-18] MEDS: Aspirin 81 MG Tab.EC PO SCH (09:11)
[2021-05-18] MEDS: Cholecalciferol (Vitamin D3) 25 MCG Tab PO SCH (09:12)
[2021-05-18] MEDS: Beta-Carotene (Vitamin A) w/Vitamin C & E plus Minerals Tab PO SCH (09:12)
[2021-05-18] MEDS: Pantoprazole 40 MG Tab.CR PO SCH (09:12)
[2021-05-18] MEDS: Sodium Bicarbonate 650 MG Tab PO SCH ×2 (09:12→17:53)
[2021-05-18] MEDS: MYCOPHENOLIC ACID 180 MG PO SCH ×3 (12:38→20:31)
[2021-05-18] MEDS: Lactated Ringers 1,000 ML IV SCH ×2 (12:43→20:36)
[2021-05-18] MEDS ORDERED: Cefepime 2 GM Vial IVPUSH SCH (13:00)
[2021-05-18] MEDS ORDERED: Cefepime 2 GM in Sodium Chloride 0.9% 100 ML IV SCH (13:00)
--- NOTE | 2021-05-18 17:55 | PCM.EKG ---
#1 Interpretation EKG Date: 05/17/21 Time: 14:44 Rhythm: NSR Rate (Beats/Min): 80 [place]: Normal P-Wave: Present QRS: Normal ST-T: Depressed (Lateral leads new from 08/2017. No CP normal troponin.) QT: Prolonged Comparison: Change From Previous EKG
[2021-05-18] MEDS: Simvastatin 10 MG Tab PO SCH (20:30)
[2021-05-18] MEDS: Sodium Chloride 0.9% 10 ML Syringe FLUSH PRN (20:36)
--- NOTE | 2021-05-18 23:31 | PCM.PN ---
- General Info Date of Service: 05/18/21 Admission Dx/Problem (Free Text): Severe sepsis septic shock responsive to fluid no need for vasopressors. Urinary tract infection complicated Acute on chronic kidney disease CKD stage III Status post renal transplant. Subjective Update: Patient is feeling quite a bit better today. His weakness has improved. He denies any fever or chills. He has had some nausea which is pretty consistent for when he has his urinary tract infections. He has been tolerating oral fluids as well as food. He offers up no other complaints today. Functional Status: Reports: Pain Controlled, Tolerating Diet, Ambulating. Denies: New Symptoms - Review of Systems General: Reports: No Symptoms HEENT: Reports: No Symptoms Pulmonary: Reports: No Symptoms Cardiovascular: Reports: No Symptoms Gastrointestinal: Reports: Flatus, Nausea. Denies: Abdominal Pain (He initially had abdominal pain upon arrival which has resolved.), Diarrhea, Vomiting Genitourinary: Reports: No Symptoms Musculoskeletal: Reports: No Symptoms Skin: Reports: No Symptoms Neurological: Reports: No Symptoms Psychiatric: Reports: No Symptoms - Patient Data Vitals - Most Recent: Last Vital Signs Temp 98.7 F 05/18/21 22:00 Pulse 60 05/18/21 22:00 Resp 18 05/18/21 22:00 BP 166/61 H 05/18/21 22:00 Pulse Ox 99 05/18/21 22:00 Weight - Most Recent: 248 lb I&O - Last 24 Hours: Intake & Output 05/18/21 05/18/21 05/19/21 14:59 22:59 06:59 Intake Total 720 2423 Output Total 1200 Balance 720 1223 Lab Results Last 24 Hours: Laboratory Results - last 24 hr 05/18/21 05/18/21 05/18/21 Range/Units 07:23 07:23 07:23 WBC 12.1 H (4.0-10.2) K/uL RBC 3.76 L (4.33-5.41) M/uL Hgb 10.5 L (13.1-16.8) g/dL Hct 34.3 L (39.0-49.0) % MCV 91.2 (84.0-98.0) fL MCH 27.9 L (28.2-33.3) pg MCHC 30.6 L (31.7-36.0) g/dL RDW 14.9 H (11.2-14.1) % Plt Count 170 (150-350) K/uL Neut % (Auto) 88.0 H (45.0-80.0) % Lymph % (Auto) 3.0 L (10.0-50.0) % Wilson % (Auto) 8.0 (2.0-14.0) % Eos % (Auto) 0.9 (0.0-5.0) % Baso % (Auto) 0.1 (0.0-2.0) % Neut # (Auto) 10.61 H (1.40-7.00) K/uL Lymph # (Auto) 0.36 L (0.50-3.50) K/uL Wilson # (Auto) 0.96 (0.00-1.00) K/uL Eos # (Auto) 0.11 (0.00-0.50) K/uL Baso # (Auto) 0.01 (0.00-0.20) K/uL Sodium 133 L (136-145) mmol/L Potassium 4.3 (3.5-5.1) mmol/L Chloride 100 (98-107) mmol/L Carbon Dioxide 22.4 (21.0-32.0) mmol/L Anion Gap 14.9 (7-15) meq/L BUN 39 H (7-18) mg/dL Creatinine 2.16 H (0.51-1.17) mg/dL Est Cr Clr Drug Dosing 35.20 mL/min Estimated GFR (MDRD) 31 mL/min Glucose 127 H (70-99) mg/dL Lactic Acid 0.7 (0.4-2.0) mmol/L Calcium 8.0 L (8.5-10.1) mg/dL C-Reactive Protein 28.9 H (<=0.9) mg/dL New Results Last 24 Hours: Microbiology 05/17/21 12:53 Aerobic Blood Culture - Preliminary Blood - Venous - Lab Draw NO GROWTH AFTER 1 DAY Anaerobic Blood Culture - Preliminary NO GROWTH AFTER 1 DAY 05/17/21 12:53 Aerobic Blood Culture - Preliminary Blood - Venous NO GROWTH AFTER 1 DAY Anaerobic Blood Culture - Preliminary NO GROWTH AFTER 1 DAY 05/17/21 12:15 Urine Culture - Preliminary Urine, Voided Gram Negative Rods Med Orders - Current: Current Medications Acetaminophen (Acetaminophen 325 Mg Tab) 650 mg PO Q4H PRN PRN Reason: Pain (Mild 1-3)/fever Aspirin (Aspirin 81 Mg Tab.Ec) 81 mg PO DAILY [facility] Last Admin: 05/18/21 09:11 Dose: 81 mg Documented by: Cholecalciferol (Cholecalciferol (Vitamin D3) 25 Mcg Tab) 50 mcg PO DAILY [facility] Last Admin: 05/18/21 09:12 Dose: 50 mcg Documented by: Enoxaparin Sodium (Enoxaparin 40 Mg/0.4 Ml Syringe) 40 mg SUBCUT DAILY [facility] Last Admin: 05/18/21 09:11 Dose: 40 mg Documented by: Lactated Ringer's (Ringers, Lactated) 1,000 mls @ 150 mls/hr IV ASDIRECTED [facility] Last Infusion: 05/18/21 19:24 Dose: Infused Documented by: Cefepime HCl 2 gm/ Sodium (Chloride) 100 mls @ 200 mls/hr IV DAILY@1300 [facility] Last Admin: 05/18/21 13:14 Dose: 200 mls/hr Documented by: Influenza Virus Vaccine (Pharmacy To Dose - Influenza Vaccine) 1 each IM O NETIME ONE Stop: 05/17/21 22:56 Multivitamins/Minerals (Beta-Carotene (Vitamin A) W/Vitamin C & E Plus Minerals Tab) 1 tab PO DAILY [facility] Last Admin: 05/18/21 09:12 Dose: 1 tab Documented by: Mycophenolic Acid (180mg Dr Tabs) 720 mg PO Q12HR [facility] Last Admin: 05/18/21 20:31 Dose: 720 mg Documented by: Ondansetron HCl (Ondansetron 4 Mg/2 Ml Sdv) 4 mg IVPUSH Q8H PRN PRN Reason: Nausea/Vomiting Pantoprazole Sodium (Pantoprazole 40 Mg Tab.Cr) 40 mg PO DAILY [facility] Last Admin: 05/18/21 09:12 Dose: 40 mg Documented by: Prednisone (Prednisone 5 Mg Tab) 5 mg PO DAILY [facility] Last Admin: 05/18/21 09:11 Dose: 5 mg Documented by: Simvastatin (Simvastatin 10 Mg Tab) 10 mg PO BEDTIME [facility] Last Admin: 05/18/21 20:30 Dose: 10 mg Documented by: Sodium Bicarbonate (Sodium Bicarbonate 650 Mg Tab) 1,300 mg PO BID [facility] Last Admin: 05/18/21 17:53 Dose: 1,300 mg Documented by: Sodium Chloride (Sodium Chloride 0.9% 10 Ml Syringe) 10 ml FLUSH ASDIRECTED PRN PRN Reason: Keep Vein Open Last Admin: 05/18/21 20:36 Dose: 10 ml Documented by: Tacrolimus (Tacrolimus 0.5 Mg Cap) 1.5 mg PO Q12HR [facility] Last Admin: 05/18/21 20:30 Dose: 1.5 mg Documented by: Discontinued Medications Cefepime HCl (Cefepime 2 Gm Vial) 2 gm IVPUSH DAILY [facility] Lactated Ringer's (Ringers, Lactated) 1,000 mls @ 1,000 mls/hr IV .BOLUS ONE Stop: 05/17/21 13:07 Last Admin: 05/17/21 12:25 Dose: 1,000 mls/hr Documented by: Cefepime HCl 2 gm/ Sodium (Chloride) 100 mls @ 200 mls/hr IV ONETIME ONE Stop: 05/17/21 12:09 Last Admin: 05/17/21 12:34 Dose: 200 mls/hr Documented by: Lactated Ringer's (Ringers, Lactated) 1,000 mls @ 1,000 mls/hr IV .BOLUS ONE Stop: 05/17/21 14:25 Last Admin: 05/17/21 13:56 Dose: 1,000 mls/hr Documented by: Lactated Ringer's (Ringers, Lactated) 1,000 mls @ 1,000 mls/hr IV .BOLUS ONE Stop: 05/17/21 15:07 Last Admin: 05/17/21 14:31 Dose: 1,000 mls/hr Documented by: Ondansetron HCl (Ondansetron 4 Mg/2 Ml Sdv) 4 mg IV ONETIME ONE Stop: 05/17/21 12:09 Last Admin: 05/17/21 12:34 Dose: 4 mg Documented by: - Exam Quality Assessment: Urine Catheter (Nephrostomy tube in place), DVT Prophylaxis General: Alert, Oriented HEENT: Pupils Equal Neck: Supple Lungs: Normal Respiratory Effort, Crackles (There is some fine bibasilar inspiratory crackles.). No: Rales, Rhonchi, Rub Cardiovascular: Regular Rate, Regular Rhythm GI/Abdominal Exam: Normal Bowel Sounds, Soft, Non-Tender, No Distention Back Exam: Normal Inspection Extremities: Normal Inspection, No Pedal Edema, Normal Capillary Refill Peripheral Pulses: 2+: Radial (L), Radial (R), Posterior Tibial (L), Posterior Tibial (R), Dorsalis Pedis (L), Dorsalis Pedis (R) Skin: Warm, Dry, Intact Neurological: No New Focal Deficit Psy/Mental Status: Alert, Normal Affect, Normal Mood - Patient Data Lab Results Last 24 hrs: Laboratory Results - last 24 hr 05/18/21 05/18/21 05/18/21 Range/Units 07:23 07:23 07:23 WBC 12.1 H (4.0-10.2) K/uL RBC 3.76 L (4.33-5.41) M/uL Hgb 10.5 L (13.1-16.8) g/dL Hct 34.3 L (39.0-49.0) % MCV 91.2 (84.0-98.0) fL MCH 27.9 L (28.2-33.3) pg MCHC 30.6 L (31.7-36.0) g/dL RDW 14.9 H (11.2-14.1) % Plt Count 170 (150-350) K/uL Neut % (Auto) 88.0 H (45.0-80.0) % Lymph % (Auto) 3.0 L (10.0-50.0) % Wilson % (Auto) 8.0 (2.0-14.0) % Eos % (Auto) 0.9 (0.0-5.0) % Baso % (Auto) 0.1 (0.0-2.0) % Neut # (Auto) 10.61 H (1.40-7.00) K/uL Lymph # (Auto) 0.36 L (0.50-3.50) K/uL Wilson # (Auto) 0.96 (0.00-1.00) K/uL Eos # (Auto) 0.11 (0.00-0.50) K/uL Baso # (Auto) 0.01 (0.00-0.20) K/uL Sodium 133 L (136-145) mmol/L Potassium 4.3 (3.5-5.1) mmol/L Chloride 100 (98-107) mmol/L Carbon Dioxide 22.4 (21.0-32.0) mmol/L Anion Gap 14.9 (7-15) meq/L BUN 39 H (7-18) mg/dL Creatinine 2.16 H (0.51-1.17) mg/dL Est Cr Clr Drug Dosing 35.20 mL/min Estimated GFR (MDRD) 31 mL/min Glucose 127 H (70-99) mg/dL Lactic Acid 0.7 (0.4-2.0) mmol/L Calcium 8.0 L (8.5-10.1) mg/dL C-Reactive Protein 28.9 H (<=0.9) mg/dL Result Diagrams: 05/18/21 07:23 05/18/21 07:23 New Results Last 24 hrs: Microbiology 05/17/21 12:53 Aerobic Blood Culture - Preliminary Blood - Venous - Lab Draw NO GROWTH AFTER 1 DAY Anaerobic Blood Culture - Preliminary NO GROWTH AFTER 1 DAY 05/17/21 12:53 Aerobic Blood Culture - Preliminary Blood - Venous NO GROWTH AFTER 1 DAY Anaerobic Blood Culture - Preliminary NO GROWTH AFTER 1 DAY 05/17/21 12:15 Urine Culture - Preliminary Urine, Voided Gram Negative Rods Sepsis Event Note - Evaluation Sepsis Screening Result: Possible Sepsis Risk - Focused Exam Vital Signs: Vital Signs Temp Temp Pulse Resp BP Pulse Ox 05/18/21 22:00 98.7 F 60 18 166/61 H 99 05/18/21 18:00 98.2 F 69 110/60 97 05/18/21 14:00 99.9 F 62 18 136/70 95 - Problem List & Annotations (1) Morbid obesity SNOMED Code(s): 720023222 Code(s): E66.01 - MORBID (SEVERE) OBESITY DUE TO EXCESS CALORIES Status: Acute Current Visit: Yes Annotation/Comment:: Discussed with patient appropriate healthy eating habits as well as exercise. (2) Acute on chronic diastolic CHF (congestive heart failure) SNOMED Code(s): 971966448, 874065064 Code(s): I50.33 - ACUTE ON CHRONIC DIASTOLIC (CONGESTIVE) HEART FAILURE Status: Acute Current Visit: Yes Annotation/Comment:: We have continued his home medication. He is not complaining of any of shortness of breath. He does have some fine bibasilar crackles. Although due to his severe sepsis and his acute kidney injury we will continue IV hydration. He has no concerns or complaints consistent with acute coronary syndrome. (3) Kidney transplant recipient SNOMED Code(s): 174153202, 183703009 Code(s): Z94.0 - KIDNEY TRANSPLANT STATUS Status: Acute Current Visit: No Annotation/Comment:: We will continue his immunosuppressive therapy from home. (4) Acute hyponatremia SNOMED Code(s): 7712507 Code(s): E87.1 - HYPO-OSMOLALITY AND HYPONATREMIA Status: Acute Priority: Low Current Visit: No Annotation/Comment:: Patient sodium upon admission was 130 it is improved to 133. Continue to monitor. (5) Acute kidney injury superimposed on chronic kidney disease SNOMED Code(s): 29023664 Code(s): N17.9 - ACUTE KIDNEY FAILURE, UNSPECIFIED; N18.9 - CHRONIC KIDNEY DISEASE, UNSPECIFIED Status: Acute Current Visit: Yes Annotation/Comment:: Baseline kidney function of 1.6. 2.5 on presentation. Today it is 2.16. We will continue IV hydration. Lactated Ringer's 125 mils an hour. He is taking in good oral fluids as well. (6) Complicated urinary tract infection SNOMED Code(s): 84232990 Code(s): N39.0 - URINARY TRACT INFECTION, SITE NOT SPECIFIED Status: Acute Current Visit: Yes Annotation/Comment:: Patient has a longstanding nephrostomy tube in place. Urine culture returned with gram-negative rods. Identifications and sensitivities still waiting on. Planning on discharge hopefully tomorrow and change of his nephrostomy tube at [facility] in [place]. (7) Hyponatremia SNOMED Code(s): 93959042 Code(s): E87.1 - HYPO-OSMOLALITY AND HYPONATREMIA Status: Acute Current Visit: Yes (8) Indwelling catheter present on admission SNOMED Code(s): 986763873 Code(s): Z96.0 - PRESENCE OF UROGENITAL IMPLANTS Status: Acute Current Visit: Yes Annotation/Comment:: Hopefully we will be able to discharge this pa tient tomorrow from inpatient care. He has an appointment with [facility] at 2 PM to change out his nephrostomy tube due to the sepsis with an indwelling catheter. (9) Severe sepsis with acute organ dysfunction SNOMED Code(s): 68814275 Code(s): A41.9 - SEPSIS, UNSPECIFIED ORGANISM; R65.20 - SEVERE SEPSIS WITHOUT SEPTIC SHOCK Status: Acute Current Visit: Yes Annotation/Comment:: Patient has severe sepsis most likely to indwelling UTI. He has quite the history of resistant pathology. He has been on cefepime 2 g every 24 hours renally dosed. His lactic acid is appropriate today.Procalcitonin is pending and still not available. His white blood cell count is down from 18-12.1. His lactic acid today is 0.7 it was never initially elevated. CRP 31 on presentation 28.9 today. Continue to monitor. Blood cultures no growth so far. 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 His liver enzymes are rather unremarkable. He will be placed on n.p.o. status tonight. With a gallbladder ultrasound in the morning. - Problem List Review Problem List Initiated/Reviewed/Updated: Yes - My Orders Last 24 Hours: My Active Orders 05/17/21 22:55 Pharmacy to Dose - InFluenza V [Pharmacy to Dose - InFluenza Vaccine] 1 each IM ONETIME ONE 05/18/21 Breakfast [employer] Diet [DIET] 05/18/21 08:00 Aspirin [Halfprin] 81 mg PO DAILY Beta-Carotene(A) w/C & E/Min [Prosight] 1 tab PO DAILY Cholecalciferol (Vitamin D3) [Vitamin D3] 50 mcg PO DAILY Enoxaparin [Lovenox] 40 mg SUBCUT DAILY Pantoprazole [ProTONIX] 40 mg PO DAILY Sodium Bicarbonate 1,300 mg PO BID predniSONE 5 mg PO DAILY 05/18/21 13:00 Cefepime [Maxipime] 2 gm Sodium Chloride 0.9% [Normal Saline AdvBag] 100 ml IV DAILY@1300 05/18/21 23:15 Gallbladder [Abdomen Ltd] [US] Routine 05/19/21 05:11 BASIC METABOLIC PANEL,BMP [CHEM] AM C-REACTIVE PROTEIN [CHEM] AM CBC WITH AUTO DIFF [HEME] AM LACTIC ACID [CHEM] AM 05/19/21 Breakfast NPO After Midnight [Nothing per Oral After Midnight Diet] [DIET] - Assessment Assessment:: Assessment/plan. We will continue the therapies as previous as well as IV hydration and the cefepime. Gallbladder ultrasound in the morning n.p.o. after midnight due to the concerns of the gallbladder. Hopefully plan on discharge tomorrow so that we can get his nephrostomy tube changed out. We will ensure that he has his dose of Maxipime prior to dischar ge. Hopefully we will also have sensitivities on his urine at that time so we can ensure appropriate antibiotic therapy. Although we will get 24 hours coverage of the cefepime and allow time if the culture and sensitivities are not back to ensure appropriate therapy. He will need close follow-up in the clinic on Sunday to ensure that he is doing well and his kidney function has improved. As I feel that we should discharge him so that we can get his nephrostomy tube changed out and clinically he has improved. He is comfortable with this plan. VTE: Enoxaparin 30 mg daily. Teds. Sepsis: Severe sepsis is improving but his sepsis is still present. Continue the Maxipime. Blood cultures negative. Urine culture growing gram-negative rods waiting for culture and sensitivity. Lactic acid is normal. Procalcitonin pending. CODE STATUS: Full.
[2021-05-19 07:53] LABS: ANION GAP 8.6 meq/L (7-15)
[2021-05-19] MEDS: Enoxaparin 40 MG/0.4 ML Syringe SUBCUT SCH (07:57)
[2021-05-19] MEDS: Tacrolimus 0.5 MG Cap PO SCH (07:57)
[2021-05-19] MEDS: Cholecalciferol (Vitamin D3) 25 MCG Tab PO SCH (07:58)
[2021-05-19] MEDS: Pantoprazole 40 MG Tab.CR PO SCH (07:58)
[2021-05-19] MEDS: Sodium Bicarbonate 650 MG Tab PO SCH (07:58)
[2021-05-19] MEDS: predniSONE 5 MG Tab PO SCH (07:59)
[2021-05-19] MEDS: Beta-Carotene (Vitamin A) w/Vitamin C & E plus Minerals Tab PO SCH (07:59)
[2021-05-19] MEDS: MYCOPHENOLIC ACID 180 MG PO SCH (07:59)
[2021-05-19] MEDS: Aspirin 81 MG Tab.EC PO SCH (07:59)
[2021-05-19 08:50] VITALS: BP 142/68; PULSE 62
--- NOTE | 2021-05-19 10:25 | PCM.DCSUM1 ---
Discharge Summary - Discharge Data Discharge Date: 05/19/21 Discharge Disposition: Home, Self-Care 01 Condition: Good - Referral to Home Health Primary Care Physician: Iesha Wilson NP - Discharge Diagnosis/Problem(s) (1) Morbid obesity SNOMED Code(s): 849412796 ICD Code: E66.01 - MORBID (SEVERE) OBESITY DUE TO EXCESS CALORIES Status: Acute Problem Details: Discussed with patient appropriate healthy eating habits as well as exercise. (2) Acute on chronic diastolic CHF (congestive heart failure) SNOMED Code(s): 871467991, 440586852 ICD Code: I50.33 - ACUTE ON CHRONIC DIASTOLIC (CONGESTIVE) HEART FAILURE St atus: Acute Problem Details: He did have a small amount of fluid in his chest x-ray. Although due to his concerns of severe sepsis he has tolerated large volume resuscitation. Has not required any oxygen. He has no increasing in his peripheral edema. We will continue his home medications. (3) Kidney transplant recipient SNOMED Code(s): 558689685, 985700223 ICD Code: Z94.0 - KIDNEY TRANSPLANT STATUS Status: Acute Problem Details: We will continue his immunosuppressive therapy from home. (4) Acute hyponatremia SNOMED Code(s): 2320605 ICD Code: E87.1 - HYPO-OSMOLALITY AND HYPONATREMIA Status: Acute Priority: Low Problem Details: Sodium on admission 130, 137 upon discharge. Recheck in the lab tomorrow with primary care follow-up (5) Acute kidney injury superimposed on chronic kidney disease SNOMED Code(s): 44557007 ICD Code: N17.9 - ACUTE KIDNEY FAILURE, UNSPECIFIED; N18.9 - CHRONIC KIDNEY DISEASE, UNSPECIFIED Status: Acute Problem Details: His baseline kidney function is about 1.61.8. Is 2.5 upon admission. He received lactated Ringer's while he was in the hospital. His creatinine is 1.94. This is about baseline. We will discharge him home today with aggressive oral hydration. (6) Complicated urinary tract infection SNOMED Code(s): 80338041 ICD Code: N39.0 - URINARY TRACT INFECTION, SITE NOT SPECIFIED Status: Acute Problem Details: Complicated UTI causing severe sepsis. Blood cultures negative. Urine culture growing E. coli and Enterobacter. Enterobacter appears to be a contaminant. E. coli the predominant agent. We will cover with Augmentin [id number] 1 tab p.o. twice daily 10 days. Nephrostomy tube to be changed at [facility] today. (7) Hyponatremia SNOMED Code(s): 61190042 ICD Code: E87.1 - HYPO-OSMOLALITY AND HYPONATREMIA Status: Acute (8) Indwelling catheter present on admission SNOMED Code(s): 297766723 ICD Code: Z96.0 - PRESENCE OF UROGENITAL IMPLANTS Status: Acute Problem Details: Hopefully we will be able to discharge this patient tomorrow from inpatient care. He has an appointment with [facility] at 2 PM to change out his nephrostomy tube due to the sepsis with an indwelling catheter. (9) Severe sepsis with acute organ dysfunction SNOMED Code(s): 70647602 ICD Code: A41.9 - SEPSIS, UNSPECIFIED ORGANISM; R65.20 - SEVERE SEPSIS WITHOUT SEPTIC SHOCK Status: Acute Problem Details: Severe sepsis has resolved. This is due to E. coli from a complicated UTI. This is susceptible to Augmentin. White blood cell count on admission was 18.5, WBC today 9.2. Lactic acid initially was 1.3 today 0.4. 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 He has no acute concerns for acute cholecystitis. We will have him follow-up with surgery. (11) Cholelithiasis SNOMED Code(s): 511037034 ICD Code: K80.20 - CALCULUS OF GALLBLADDER W/O CHOLECYSTITIS W/O OBSTRUCTION Status: Acute Qualifiers: Cholelithiasis location: gallbladder Cholecystitis presence: without cholecystitis Biliary obstruction: without biliary obstruction Qualified C ode(s): K80.20 - Calculus of gallbladder without cholecystitis without obstruction - Patient Summary/Data Hospital Course: Patient was admitted into the hospital on 05-17-21 with concerns of severe sepsis septic shock responsive to fluid resuscitation most likely from longstanding indwelling catheter. Patient received 30 mils per kilogram bolus of IV fluid in the emergency department. He had a quite elevated white blood cell count. He was pancultured. His blood cultures have been negative. His urine culture has returned with E. coli is a predominant organism. He was covered with cefepime 2 g every 24 hours due to history of a rather large resistance pattern. He quickly stabilized with antibiotics as well as fluid resuscitation. He never had an elevated lactic acid. His white blood cell count returned to normal. His lactic acid was never elevated. He tolerated the fluid resuscitation initially as well as continued hydration throughout the hospital stay. His baseline kidney function is 1.61.8 was 2.5 upon presentation and 1.94 upon discharge. He was placed on Augmentin 875/125 1 tab p.o. twice daily Days. Close follow-up with primary care in the clinic tomorrow. He will be discharged from the hospital today so that he can go to [facility] to get his long- term indwelling nephrostomy tube replaced as this is most likely the site of his sepsis at this time. - Patient Instructions Diet: Heart Healthy Diet Other/Special Instructions: Make sure and drink plenty of fluids over the next few days. This is going to be paramount to improve your kidney function. I mean push push push fluids. See [facility] today to get your nephrostomy tube changed today as this is the site of your infection. Also your gallbladder is packed with stones. I would like you to see a surgeon about this in the future. Nothing urgent. See Dr. Price in the clinic tomorrow for recheck and close follow up with labs. Once I get your urine culture and sentivities today I will let you know by phone what antibiotic we will start you on. The Cefepime we gave you in the hospital will cover you for the next 24 hours. Exercise weight loss is important as well. Continue all other previous medications. - Discharge Plan Prescriptions/Med Rec: Amoxicillin/Potassium Clav [Augmentin 875-125 Tablet] 1 each PO BID #20 tablet Home Medications: Home Meds Aspirin [Low Dose Aspirin EC] 81 mg PO DAILY 06/25/13 [History] Multivit-Min/FA/Lycopene/Lut [Centrum Silver] 1 each PO DAILY 06/25/13 [History] Mycophenolate [Myfortic] 720 mg PO Q12HR 06/25/13 [History] Simvastatin 10 mg PO BEDTIME 06/25/13 [History] Sodium Bicarbonate 1,300 mg PO BID 06/25/13 [History] Cholecalciferol (Vitamin D3) [Vitamin D3] 2,000 unit PO DAILY 03/10/16 [History] Benzonatate 1 - 2 cap PO TID PRN 04/01/16 [History] Furosemide 20 mg PO DAILY PRN 09/25/17 [History] Pantoprazole Sodium [Protonix] 40 mg PO DAILY 09/25/17 [History] predniSONE [Prednisone] 5 mg PO DAILY 10/12/17 [History] Tacrolimus [Prograf] 1.5 mg PO Q12HR 03/29/18 [History] Acetaminophen [Tylenol Extra Strength] 500 mg PO Q6HR PRN 05/28/19 [History] Ibandronate Sodium [Boniva] 150 mg PO Q30D 05/28/19 [History] Nystatin [Nystop] 60 gm TP ASDIRECTED PRN 05/28/19 [History] Amoxicillin 4 tab PO ASDIRECTED PRN 08/20/20 [History] Ondansetron [Zofran ODT] 4 mg PO ASDIRECTED PRN 08/20/20 [History] Acetaminophen [Tylenol] 650 mg PO Q4H PRN tablet 05/19/21 [Rx] Amoxicillin/Potassium Clav [Augmentin 875-125 Tablet] 1 each PO BID #20 tablet 05/19/21 [Rx] Forms: ED Department Discharge Referrals: Iesha Wilson NP [Primary Care Provider] - - Discharge Summary/Plan Comment DC Time >30 min.: Yes Total # of Minutes for Discharge Time: 55 - General Info Admission Dx/Problem (Free Text: Severe sepsis septic shock responsive to fluid no need for vasopressors. Urinary tract infection complicated Acute on chronic kidney disease CKD stage III Status post renal transplant. Subjective Update: Patient slept well throughout the night. Has been drinking fluids well. He does not have any abdominal pain. He denies any fever or chills. No cough congestion is of breath. He really feels quite well. His nausea that has been resolved. His strength is improving he has been ambulating without difficulty. He would really like to get out of the hospital today so that he can get his nephrostomy tube today changed. - Review of Systems General: Reports: No Symptoms, Night Sweats Pulmonary: Reports: No Symptoms Cardiovascular: Reports: No Symptoms Gastrointestinal: Reports: No Symptoms Genitourinary: Reports: No Symptoms Musculoskeletal: Reports: No Symptoms Skin: Reports: No Symptoms Neurological: Reports: No Symptoms Psychiatric: Reports: No Symptoms - Patient Data Vitals - Most Recent: Last Vital Signs Temp 99.3 F 05/19/21 08:46 Pulse 62 05/19/21 08:46 Resp 18 05/19/21 08:46 BP 142/68 H 05/19/21 08:46 Pulse Ox 92 L 05/19/21 08:46 Weight - Most Recent: 248 lb I&O - Last 24 hours: Intake & Output 05/18/21 05/19/21 05/19/21 22:59 06:59 14:59 Intake Total 2423 137 360 Output Total 1200 1700 550 Balance 1223 -1563 -190 Imaging Impressions - Last 24 hrs: Ultrasound of the gallbladder G shows distended gallbladder filled with echogenic material including sludge and gravel at least 1 stone of small size. The possibility of cholecystitis is difficult to exclude in the this patient with cholelithiasis cyst. Right renal cortical thinning appears severe. Pleural fluid suggested on the right. Not seen on previous CT scan. Lab Results - Last 24 hrs: Laboratory Results - last 24 hr 05/19/21 05/19/21 05/19/21 Range/Units 07:15 07:15 07:15 WBC 9.2 (4.0-10.2) K/uL RBC 3.83 L (4.33-5.41) M/uL Hgb 10.6 L (13.1-16.8) g/dL Hct 35.0 L (39.0-49.0) % MCV 91.4 (84.0-98.0) fL MCH 27.7 L (28.2-33.3) pg MCHC 30.3 L (31.7-36.0) g/dL RDW 14.8 H (11.2-14.1) % Plt Count 198 (150-350) K/uL Neut % (Auto) 84.8 H (45.0-80.0) % Lymph % (Auto) 4.0 L (10.0-50.0) % Peach % (Auto) 9.5 (2.0-14.0) % Eos % (Auto) 1.6 (0.0-5.0) % Baso % (Auto) 0.1 (0.0-2.0) % Neut # (Auto) 7.77 H (1.40-7.00) K/uL Lymph # (Auto) 0.37 L (0.50-3.50) K/uL Peach # (Auto) 0.87 (0.00-1.00) K/uL Eos # (Auto) 0.15 (0.00-0.50) K/uL Baso # (Auto) 0.01 (0.00-0.20) K/uL Sodium 137 (136-145) mmol/L Potassium 4.4 (3.5-5.1) mmol/L Chloride 105 (98-107) mmol/L Carbon Dioxide 23.4 (21.0-32.0) mmol/L Anion Gap 8.6 (7-15) meq/L BUN 37 H (7-18) mg/dL Creatinine 1.94 H (0.51-1.17) mg/dL Est Cr Clr Drug Dosing 39.20 mL/min Estimated GFR (MDRD) 35 mL/min Glucose 127 H (70-99) mg/dL Lactic Acid 0.4 (0.4-2.0) mmol/L Calcium 8.2 L (8.5-10.1) mg/dL C-Reactive Protein 12.8 H (<=0.9) mg/dL DARREL Results - Last 24 hrs: Microbiology 05/17/21 12:53 Aerobic Blood Culture - Preliminary Blood - Venous - Lab Draw NO GROWTH AFTER 1 DAY Anaerobic Blood Culture - Preliminary NO GROWTH AFTER 1 DAY 05/17/21 12:53 Aerobic Blood Culture - Preliminary Blood - Venous NO GROWTH AFTER 1 DAY Anaerobic Blood Culture - Preliminary NO GROWTH AFTER 1 DAY 05/17/21 12:15 Urine Culture - Preliminary Urine, Voided Gram Negative Rods Microbiology 05/17/21 12:15 Urine, Voided Urine Culture - Final Escherichia Coli Enterobacter Cloacae 05/17/21 12:53 Blood - Venous - Lab Draw Aerobic Blood Culture - Preliminary NO GROWTH AFTER 2 DAYS 05/17/21 12:53 Blood - Venous - Lab Draw Anaerobic Blood Culture - Preliminary NO GROWTH AFTER 2 DAYS 05/17/21 12:53 Blood - Venous Aerobic Blood Culture - Preliminary NO GROWTH AFTER 2 DAYS 05/17/21 12:53 Blood - Venous Anaerobic Blood Culture - Preliminary NO GROWTH AFTER 2 DAYS Med Orders - Current: Current Medications Acetaminophen (Acetaminophen 325 Mg Tab) 650 mg PO Q4H PRN PRN Reason: Pain (Mild 1-3)/fever Aspirin (Aspirin 81 Mg Tab.Ec) 81 mg PO DAILY [facility] Last Admin: 05/19/21 07:59 Dose: 81 mg Documented by: Cholecalciferol (Cholecalciferol (Vitamin D3) 25 Mcg Tab) 50 mcg PO DAILY [facility] Last Admin: 05/19/21 07:58 Dose: 50 mcg Documented by: Enoxaparin Sodium (Enoxaparin 40 Mg/0.4 Ml Syringe) 40 mg SUBCUT DAILY [facility] Last Admin: 05/19/21 07:57 Dose: 40 mg Documented by: Lactated Ringer's (Ringers, Lactated) 1,000 mls @ 150 mls/hr IV ASDIRECTED [facility] Last Infusion: 05/18/21 19:24 Dose: Infused Documented by: Cefepime HCl 2 gm/ Sodium (Chloride) 100 mls @ 200 mls/hr IV DAILY@1300 [facility] Last Admin: 05/18/21 13:14 Dose: 200 mls/hr Documented by: Influenza Virus Vaccine (Pharmacy To Dose - Influenza Vaccine) 1 each IM ONETIME ONE Stop: 05/17/21 22:56 Multivitamins/Minerals (Beta-Carotene (Vitamin A) W/Vitamin C & E Plus Minerals Tab) 1 tab PO DAILY [facility] Last Admin: 05/19/21 07:59 Dose: 1 tab Documented by: Mycophenolic Acid (180mg Dr Tabs) 720 mg PO Q12HR [facility] Last Admin: 05/19/21 07:59 Dose: 720 mg Documented by: Ondansetron HCl (Ondansetron 4 Mg/2 Ml Sdv) 4 mg IVPUSH Q8H PRN PRN Reason: Nausea/Vomiting Pantoprazole Sodium (Pantoprazole 40 Mg Tab.Cr) 40 mg PO DAILY [facility] Last Admin: 05/19/21 07:58 Dose: 40 mg Documented by: Prednisone (Prednisone 5 Mg Tab) 5 mg PO DAILY [facility] Last Admin: 05/19/21 07:59 Dose: 5 mg Documented by: Simvastatin (Simvastatin 10 Mg Tab) 10 mg PO BEDTIME [facility] Last Admin: 05/18/21 20:30 Dose: 10 mg Documented by: Sodium Bicarbonate (Sodium Bicarbonate 650 Mg Tab) 1,300 mg PO BID [facility] Last Admin: 05/19/21 07:58 Dose: 1,300 mg Documented by: Sodium Chloride (Sodium Chloride 0.9% 10 Ml Syringe) 10 ml FLUSH ASDIRECTED PRN PRN Reason: Keep Vein Open Last Admin: 05/18/21 20:36 Dose: 10 ml Documented by: Tacrolimus (Tacrolimus 0.5 Mg Cap) 1.5 mg PO Q12HR [facility] Last Admin: 05/19/21 07:57 Dose: 1.5 mg Documented by: Discontinued Medications Cefepime HCl (Cefepime 2 Gm Vial) 2 gm IVPUSH DAILY [facility] Lactated Ringer's (Ringers, Lactated) 1,000 mls @ 1,000 mls/hr IV .BOLUS ONE Stop: 05/17/21 13:07 Last Admin: 05/17/21 12:25 Dose: 1,000 mls/hr Documented by: Cefepime HCl 2 gm/ Sodium (Chloride) 100 mls @ 200 mls/hr IV ONETIME ONE Stop: 05/17/21 12:09 Last Admin: 05/17/21 12:34 Dose: 200 mls/hr Documented by: Lactated Ringer's (Ringers, Lactated) 1,000 mls @ 1,000 mls/hr IV .BOLUS ONE Stop: 05/17/21 14:25 Last Admin: 05/17/21 13:56 Dose: 1,000 mls/hr Documented by: Lactated Ringer's (Ringers, Lactated) 1,000 mls @ 1,000 mls/hr IV .BOLUS ONE Stop: 05/17/21 15:07 Last Admin: 05/17/21 14:31 Dose: 1,000 mls/hr Documented by: Ondansetron HCl (Ondansetron 4 Mg/2 Ml Sdv) 4 mg IV ONETIME ONE Stop: 05/17/21 12:09 Last Admin: 05/17/21 12:34 Dose: 4 mg Documented by: - Exam Quality Assessment: Reports: Urine Catheter (nephrostomy), DVT Prophylaxis General: Reports: Alert, Oriented HEENT: Reports: Pupils Equal, Pupils Reactive Neck: Reports: Supple Lungs: Reports: Normal Respiratory Effort, Crackles (Fine basilar crackles bilaterally) Cardiovascular: Reports: Regular Rate, Regular Rhythm GI/Abdominal Exam: Normal Bowel Sounds, Soft, Non-Tender. No: Tender (Male) Exam: Deferred Rectal (Males) Exam: Deferred Back Exam: Reports: Normal Inspection, Full Range of Motion Extremities: Normal Inspection, Non-Tender, Normal Capillary Refill, Pedal Edema (1+ pitting bilateral no worsening) Skin: Reports: Warm, Dry, Intact Neurological: Reports: No New Focal Deficit Psy/Mental Status: Reports: Alert, Normal Affect, Normal Mood
[2021-05-19] MEDS ORDERED: Cefepime 1 GM Vial IM STA (11:10)
== END 2021-05-19 12:05 | disposition home or self-care (01) | DRG 698 ==
LOC: LL.ED 11:35 → LL.MS 16:19
PROVIDERS: ADMIT Nurse Practitioner Family; ATTEND Nurse Practitioner Family
DX: A41.9 Sepsis, unspecified organism (principal); T83.518A Infection and inflammatory reaction due to other urinary catheter, initial encounter; I50.33 Acute on chronic diastolic (congestive) heart failure; A41.51 Sepsis due to Escherichia coli [E. coli]; A41.81 Sepsis due to Enterococcus; R65.21 Severe sepsis with septic shock; N39.0 Urinary tract infection, site not specified; N17.9 Acute kidney failure, unspecified; Z94.0 Kidney transplant status; E87.1 Hypo-osmolality and hyponatremia; I13.0 Hypertensive heart and chronic kidney disease with heart failure and stage 1 through stage 4 chronic kidney disease, or unspecified chronic kidney disease; Z94.83 Pancreas transplant status; E10.22 Type 1 diabetes mellitus with diabetic chronic kidney disease; Z85.828 Personal history of other malignant neoplasm of skin; Q44.1 Other congenital malformations of gallbladder; Z86.14 Personal history of Methicillin resistant Staphylococcus aureus infection; T83.512A Infection and inflammatory reaction due to nephrostomy catheter, initial encounter; Z88.1 Allergy status to other antibiotic agents; Z88.2 Allergy status to sulfonamides; Z88.8 Allergy status to other drugs, medicaments and biological substances; Z79.82 Long term (current) use of aspirin; Z79.52 Long term (current) use of systemic steroids; Z79.899 Other long term (current) drug therapy; E66.01 Morbid (severe) obesity due to excess calories; B96.20 Unspecified Escherichia coli [E. coli] as the cause of diseases classified elsewhere; B95.2 Enterococcus as the cause of diseases classified elsewhere; E11.22 Type 2 diabetes mellitus with diabetic chronic kidney disease; Z96.0 Presence of urogenital implants; Y84.6 Urinary catheterization as the cause of abnormal reaction of the patient, or of later complication, without mention of misadventure at the time of the procedure; K80.20 Calculus of gallbladder without cholecystitis without obstruction; Z20.822 Contact with and (suspected) exposure to COVID-19; N18.30 Chronic kidney disease, stage 3 unspecified; I25.2 Old myocardial infarction; Z95.5 Presence of coronary angioplasty implant and graft; Y92.89 Other specified places as the place of occurrence of the external cause; Z87.440 Personal history of urinary (tract) infections; Z68.35 Body mass index [BMI] 35.0-35.9, adult; Z97.3 Presence of spectacles and contact lenses; Z87.01 Personal history of pneumonia (recurrent); Z79.4 Long term (current) use of insulin; Z93.6 Other artificial openings of urinary tract status
CPT/HCPCS: 36415; 71045; 74176; 76705; 80048; 80053; 81001; 83605; 84145; 84484; 85025; 86140; 87040; 87086; 87186; 93005; 96365; 96375; 99285-25; A9270-GY; J0692; J1650; J2405; J7120; J7507; J7512; U0002

== ENCOUNTER 2021-08-20 03:03 | Emergency (ER) | payer MEDICARE, OTHER ==
[2021-08-20 03:13] VITALS: PULSE 61
[2021-08-20 03:55] VITALS: BP 119/62
[2021-08-20] MEDS ORDERED: Ondansetron 4 MG Tab.DIS PO ONE (04:20)
[2021-08-20 04:26] LABS: ANION GAP 15.1 meq/L (7-15)
== END 2021-08-20 05:28 | disposition home or self-care (01) ==
LOC: LL.ED 03:03
DX: M79.604 Pain in right leg (principal); R82.81 Pyuria; E10.9 Type 1 diabetes mellitus without complications; I10 Essential (primary) hypertension; I25.2 Old myocardial infarction; Z95.5 Presence of coronary angioplasty implant and graft; Z88.1 Allergy status to other antibiotic agents; Z88.2 Allergy status to sulfonamides; Z88.8 Allergy status to other drugs, medicaments and biological substances; Z88.5 Allergy status to narcotic agent; Z79.82 Long term (current) use of aspirin; Z79.899 Other long term (current) drug therapy
CPT/HCPCS: 36415; 73620-RT; 80053; 81001; 81003; 83735; 85025; 87086; 99283

== ENCOUNTER 2021-09-07 09:14 | Inpatient (IN) | payer MEDICARE, OTHER ==
[2021-09-07] MEDS ORDERED: Sodium Chloride 0.9% 10 ML Syringe FLUSH PRN (09:55)
[2021-09-07 10:39] LABS: ANION GAP 13.3 meq/L (7-15); CHLORIDE,CL 100 mmol/L (98-107); SODIUM,NA 133 mmol/L (136-145)
[2021-09-07] MEDS: Lactated Ringers 1,000 ML IV SCH ×2 (11:09→18:13)
[2021-09-07] MEDS ORDERED: Polyethylene Glycol 3350 Powder 17 GM Packet PO PRN (12:28)
[2021-09-07] MEDS ORDERED: Acetaminophen 325 MG Tab PO PRN (13:00)
[2021-09-07] MEDS ORDERED: Ondansetron 4 MG Tab.DIS PO PRN (13:00)
[2021-09-07] MEDS: Heparin Sodium 5,000 Units/ML Vial SUBCUT SCH ×2 (14:47→19:59)
[2021-09-07] MEDS: Sodium Bicarbonate 650 MG Tab PO SCH (18:13)
[2021-09-07] MEDS: Tacrolimus 0.5 MG Cap PO SCH (19:48)
[2021-09-07] MEDS: Simvastatin 10 MG Tab PO SCH (19:48)
[2021-09-07] MEDS: MYCOPHENOLATE 180 MG PO SCH (19:49)
[2021-09-07] MEDS: Benzonatate 100 MG Cap PO PRN (20:21)
[2021-09-08] MEDS: Heparin Sodium 5,000 Units/ML Vial SUBCUT SCH ×3 (06:15→17:10)
[2021-09-08 07:49] LABS: ANION GAP 13.3 meq/L (7-15)
[2021-09-08] MEDS: Tacrolimus 0.5 MG Cap PO SCH ×2 (08:54→19:57)
[2021-09-08] MEDS: predniSONE 5 MG Tab PO SCH (08:55)
[2021-09-08] MEDS: Sodium Bicarbonate 650 MG Tab PO SCH ×2 (08:55→17:09)
[2021-09-08] MEDS: Aspirin 81 MG Tab.EC PO SCH (08:55)
[2021-09-08] MEDS: Pantoprazole 40 MG Tab.CR PO SCH (08:55)
[2021-09-08] MEDS: MYCOPHENOLATE 180 MG PO SCH ×2 (08:56→19:58)
[2021-09-08] MEDS ORDERED: cefTRIAXone 1 GM in Sodium Chloride 0.9% 100 ML IV SCH (10:15)
[2021-09-08] MEDS ORDERED: Ampicillin/Sulbactam Na 3 GM in Sodium Chloride 0.9% 100 ML IV ONE (10:45)
[2021-09-08] MEDS: Lactated Ringers 1,000 ML IV SCH ×2 (12:45→21:42)
[2021-09-08] MEDS: Ampicillin/Sulbactam Na 3 GM in Sodium Chloride 0.9% 100 ML IV SCH (12:46)
[2021-09-08] MEDS: Benzonatate 100 MG Cap PO PRN (19:57)
[2021-09-08] MEDS: Simvastatin 10 MG Tab PO SCH (19:58)
[2021-09-09] MEDS: Heparin Sodium 5,000 Units/ML Vial SUBCUT SCH ×3 (00:20→15:32)
[2021-09-09] MEDS: Ampicillin/Sulbactam Na 3 GM in Sodium Chloride 0.9% 100 ML IV SCH ×2 (00:21→11:47)
[2021-09-09] MEDS: MYCOPHENOLATE 180 MG PO SCH ×2 (07:38→19:32)
[2021-09-09] MEDS: Aspirin 81 MG Tab.EC PO SCH (07:38)
[2021-09-09] MEDS: Sodium Bicarbonate 650 MG Tab PO SCH ×2 (07:39→17:12)
[2021-09-09] MEDS: predniSONE 5 MG Tab PO SCH (07:39)
[2021-09-09] MEDS: Pantoprazole 40 MG Tab.CR PO SCH (07:39)
[2021-09-09] MEDS: Tacrolimus 0.5 MG Cap PO SCH ×2 (07:42→19:31)
[2021-09-09 08:04] LABS: ANION GAP 14.5 meq/L (7-15)
[2021-09-09] MEDS: Benzonatate 100 MG Cap PO PRN ×2 (11:46→19:31)
[2021-09-09] MEDS: Simvastatin 10 MG Tab PO SCH (19:32)
[2021-09-10] MEDS: Heparin Sodium 5,000 Units/ML Vial SUBCUT SCH ×2 (00:07→07:37)
[2021-09-10] MEDS: Ampicillin/Sulbactam Na 3 GM in Sodium Chloride 0.9% 100 ML IV SCH (00:07)
[2021-09-10] MEDS: MYCOPHENOLATE 180 MG PO SCH (07:39)
[2021-09-10] MEDS: Tacrolimus 0.5 MG Cap PO SCH (07:39)
[2021-09-10] MEDS: Aspirin 81 MG Tab.EC PO SCH (07:41)
[2021-09-10] MEDS: Pantoprazole 40 MG Tab.CR PO SCH (07:41)
[2021-09-10] MEDS: Benzonatate 100 MG Cap PO PRN (07:41)
[2021-09-10] MEDS: Sodium Bicarbonate 650 MG Tab PO SCH (07:41)
[2021-09-10] MEDS: predniSONE 5 MG Tab PO SCH (07:42)
[2021-09-10 07:45] VITALS: BP 134/72; PULSE 62
[2021-09-10 08:19] LABS: ANION GAP 13.5 meq/L (7-15)
== END 2021-09-10 10:00 | disposition home or self-care (01) | DRG 698 ==
LOC: LL.ED 09:14 → LL.MS 11:28 → OBSVTOIN 09-08 12:10
PROVIDERS: ADMIT Hospitalist; ATTEND Hospitalist
DX: T83.512A Infection and inflammatory reaction due to nephrostomy catheter, initial encounter (principal); N17.9 Acute kidney failure, unspecified; A41.9 Sepsis, unspecified organism; T86.12 Kidney transplant failure; N39.0 Urinary tract infection, site not specified; Z94.83 Pancreas transplant status; E87.1 Hypo-osmolality and hyponatremia; I13.0 Hypertensive heart and chronic kidney disease with heart failure and stage 1 through stage 4 chronic kidney disease, or unspecified chronic kidney disease; I50.32 Chronic diastolic (congestive) heart failure; Z94.0 Kidney transplant status; Z96.698 Presence of other orthopedic joint implants; N18.30 Chronic kidney disease, stage 3 unspecified; Y83.8 Other surgical procedures as the cause of abnormal reaction of the patient, or of later complication, without mention of misadventure at the time of the procedure; Y92.89 Other specified places as the place of occurrence of the external cause; E87.6 Hypokalemia; F41.9 Anxiety disorder, unspecified; E87.5 Hyperkalemia; E66.01 Morbid (severe) obesity due to excess calories; E08.22 Diabetes mellitus due to underlying condition with diabetic chronic kidney disease; E78.1 Pure hyperglyceridemia; Z96.0 Presence of urogenital implants; D84.9 Immunodeficiency, unspecified; E66.1 Drug-induced obesity; E86.0 Dehydration; Z79.1 Long term (current) use of non-steroidal anti-inflammatories (NSAID); Z97.3 Presence of spectacles and contact lenses; Z79.2 Long term (current) use of antibiotics; I25.2 Old myocardial infarction; Z87.440 Personal history of urinary (tract) infections; Z87.01 Personal history of pneumonia (recurrent); Z79.4 Long term (current) use of insulin; Z95.5 Presence of coronary angioplasty implant and graft; Z86.14 Personal history of Methicillin resistant Staphylococcus aureus infection; Z68.35 Body mass index [BMI] 35.0-35.9, adult; E10.22 Type 1 diabetes mellitus with diabetic chronic kidney disease; I12.9 Hypertensive chronic kidney disease with stage 1 through stage 4 chronic kidney disease, or unspecified chronic kidney disease; Z93.6 Other artificial openings of urinary tract status; Z88.1 Allergy status to other antibiotic agents; Z88.2 Allergy status to sulfonamides; Z88.8 Allergy status to other drugs, medicaments and biological substances; Z85.828 Personal history of other malignant neoplasm of skin; Z79.82 Long term (current) use of aspirin; Z79.899 Other long term (current) drug therapy; T83.592A Infection and inflammatory reaction due to indwelling ureteral stent, initial encounter; Z86.16 Personal history of COVID-19; R53.1 Weakness
CPT/HCPCS: 36415 ×2; 71045; 80048; 80053; 81001; 83605; 83735; 85025; 85027; 86140 ×2; 87040 ×2; 87086; 87186; 96372 ×2; 97165; 97535; 99285; A9270 ×8; G0378 ×3; J1644 ×3; J7120 ×2; J7507 ×2; J7512; 97161-GP; J0295

== ENCOUNTER 2021-09-16 11:33 | Inpatient (IN) | payer MEDICARE, OTHER ==
[2021-09-16] MEDS ORDERED: Sodium Chloride 0.9% 1,000 ML IV SCH (11:45)
[2021-09-16] MEDS ORDERED: Meropenem 1 GM in Sodium Chloride 0.9% 100 ML IV ONE (12:15)
[2021-09-16 12:21] LABS: ANION GAP 12.5 meq/L (7-15); CHLORIDE,CL 104 mmol/L (98-107); SODIUM,NA 138 mmol/L (136-145)
[2021-09-16] MEDS: Sodium Chloride 0.9% 1,000 ML IV SCH ×2 (14:11→22:22)
[2021-09-16] MEDS ORDERED: oxyCODONE 5 MG Tab PO PRN (14:31)
[2021-09-16] MEDS ORDERED: Bisacodyl 5 MG Tab PO PRN (14:31)
[2021-09-16] MEDS ORDERED: Ondansetron 4 MG/2 ML SDV IVPUSH PRN (14:31)
[2021-09-16] MEDS ORDERED: Ondansetron 4 MG Tab.DIS PO PRN (14:31)
[2021-09-16] MEDS ORDERED: Melatonin 3 MG Tab PO PRN (14:31)
[2021-09-16] MEDS ORDERED: Albuterol 0.083% 2.5 MG/3 ML Neb Soln NEB PRN (14:31)
[2021-09-16] MEDS ORDERED: Albuterol/Ipratropium 3.0-0.5 MG/3 ML Neb Soln NEB PRN (14:31)
[2021-09-16] MEDS ORDERED: Acetaminophen 325 MG Tab PO PRN (14:31)
[2021-09-16] MEDS ORDERED: Nystatin Topical Powder 15 GM Bottle TOP PRN (14:40)
[2021-09-16] MEDS ORDERED: Hydrocortisone Sodium Succinate 100 MG/2 ML SDV IVPUSH ONE (14:43)
[2021-09-16] MEDS: Enoxaparin 40 MG/0.4 ML Syringe SUBCUT SCH (16:48)
[2021-09-16] MEDS: Sodium Bicarbonate 650 MG Tab PO SCH (18:12)
[2021-09-16] MEDS: Tacrolimus 0.5 MG Cap PO SCH (19:57)
[2021-09-16] MEDS: Simvastatin 10 MG Tab PO SCH (19:58)
[2021-09-17] MEDS: Meropenem 1 GM in Sodium Chloride 0.9% 100 ML IV SCH ×2 (00:18→12:25)
[2021-09-17] MEDS: Benzonatate 100 MG Cap PO PRN ×2 (00:18→15:56)
[2021-09-17] MEDS: Sodium Chloride 0.9% 1,000 ML IV SCH ×2 (07:15→16:24)
[2021-09-17] MEDS: Sodium Bicarbonate 650 MG Tab PO SCH ×2 (07:18→17:45)
[2021-09-17] MEDS: Aspirin 81 MG Tab.EC PO SCH (07:18)
[2021-09-17] MEDS: Multivitamins with Iron and Minerals Tab.Chew PO SCH (07:18)
[2021-09-17] MEDS: Pantoprazole 40 MG Tab.CR PO SCH (07:19)
[2021-09-17] MEDS: Tacrolimus 0.5 MG Cap PO SCH ×2 (07:19→20:15)
[2021-09-17] MEDS: Cholecalciferol (Vitamin D3) 25 MCG Tab PO SCH (07:19)
[2021-09-17] MEDS: Enoxaparin 40 MG/0.4 ML Syringe SUBCUT SCH (07:19)
[2021-09-17] MEDS: predniSONE 5 MG Tab PO SCH (07:19)
[2021-09-17] MEDS ORDERED: [UNRECOGNIZED DRUG - OTHER] PO SCH (08:00)
[2021-09-17] MEDS ORDERED: Enoxaparin 30 MG/0.3 ML Syringe SUBCUT SCH (08:00)
[2021-09-17 08:31] LABS: ANION GAP 13.3 meq/L (7-15)
[2021-09-17] MEDS: Simvastatin 10 MG Tab PO SCH (20:15)
[2021-09-18] MEDS: Sodium Chloride 0.9% 1,000 ML IV SCH (00:27)
[2021-09-18] MEDS: Meropenem 1 GM in Sodium Chloride 0.9% 100 ML IV SCH ×2 (00:28→12:11)
[2021-09-18] MEDS: Sodium Bicarbonate 650 MG Tab PO SCH ×2 (08:57→18:12)
[2021-09-18] MEDS: Multivitamins with Iron and Minerals Tab.Chew PO SCH (08:57)
[2021-09-18] MEDS: Cholecalciferol (Vitamin D3) 25 MCG Tab PO SCH (08:58)
[2021-09-18] MEDS: Pantoprazole 40 MG Tab.CR PO SCH (08:58)
[2021-09-18] MEDS: predniSONE 5 MG Tab PO SCH (08:58)
[2021-09-18] MEDS: Tacrolimus 0.5 MG Cap PO SCH ×2 (08:58→19:35)
[2021-09-18] MEDS: Aspirin 81 MG Tab.EC PO SCH (08:59)
[2021-09-18] MEDS: Heparin Sodium 5,000 Units/ML Vial SUBCUT SCH ×2 (08:59→18:12)
[2021-09-18 10:32] LABS: ANION GAP 16.5 meq/L (7-15)
[2021-09-18] MEDS ORDERED: Lactated Ringers 1,000 ML IV SCH (11:45)
[2021-09-18] MEDS: Sodium Chloride 0.9% 10 ML Syringe FLUSH PRN (12:11)
[2021-09-18 18:24] LABS: ANION GAP 15.2 meq/L (7-15)
[2021-09-18] MEDS: Simvastatin 10 MG Tab PO SCH (19:35)
[2021-09-18] MEDS: Benzonatate 100 MG Cap PO PRN (19:41)
[2021-09-19] MEDS: Meropenem 1 GM in Sodium Chloride 0.9% 100 ML IV SCH ×2 (00:33→12:14)
[2021-09-19] MEDS: Sodium Chloride 0.9% 10 ML Syringe FLUSH PRN ×2 (00:33→12:10)
[2021-09-19] MEDS: Heparin Sodium 5,000 Units/ML Vial SUBCUT SCH ×2 (00:33→08:18)
[2021-09-19 08:09] VITALS: BP 168/86; PULSE 71
[2021-09-19] MEDS: Cholecalciferol (Vitamin D3) 25 MCG Tab PO SCH (08:16)
[2021-09-19] MEDS: Pantoprazole 40 MG Tab.CR PO SCH (08:17)
[2021-09-19] MEDS: Sodium Bicarbonate 650 MG Tab PO SCH (08:17)
[2021-09-19] MEDS: Aspirin 81 MG Tab.EC PO SCH (08:17)
[2021-09-19] MEDS: predniSONE 5 MG Tab PO SCH (08:17)
[2021-09-19] MEDS: Tacrolimus 0.5 MG Cap PO SCH (08:18)
[2021-09-19] MEDS: Multivitamins with Iron and Minerals Tab.Chew PO SCH (08:22)
[2021-09-19 10:34] LABS: ANION GAP 14.3 meq/L (7-15)
[2021-09-19] MEDS ORDERED: Ertapenem 1 GM in Sodium Chloride 0.9% 100 ML IV SCH (13:00)
== END 2021-09-19 14:50 | disposition home or self-care (01) | DRG 871 ==
LOC: LL.ED 11:33 → LL.MS 14:04
PROVIDERS: ADMIT Physician Assistant; ATTEND Hospitalist
DX: A41.9 Sepsis, unspecified organism (principal); N18.6 End stage renal disease; R06.00 Dyspnea, unspecified; U09.9 Post COVID-19 condition, unspecified; R53.83 Other fatigue; J18.9 Pneumonia, unspecified organism; Z94.0 Kidney transplant status; Z94.83 Pancreas transplant status; N17.9 Acute kidney failure, unspecified; N39.0 Urinary tract infection, site not specified; D84.9 Immunodeficiency, unspecified; I50.32 Chronic diastolic (congestive) heart failure; I13.0 Hypertensive heart and chronic kidney disease with heart failure and stage 1 through stage 4 chronic kidney disease, or unspecified chronic kidney disease; I12.0 Hypertensive chronic kidney disease with stage 5 chronic kidney disease or end stage renal disease; I95.9 Hypotension, unspecified; Z97.3 Presence of spectacles and contact lenses; E10.22 Type 1 diabetes mellitus with diabetic chronic kidney disease; Z85.828 Personal history of other malignant neoplasm of skin; Z86.14 Personal history of Methicillin resistant Staphylococcus aureus infection; Z79.82 Long term (current) use of aspirin; Z79.52 Long term (current) use of systemic steroids; Z79.899 Other long term (current) drug therapy; E86.0 Dehydration; L89.322 Pressure ulcer of left buttock, stage 2; E66.9 Obesity, unspecified; Z68.35 Body mass index [BMI] 35.0-35.9, adult; Z88.1 Allergy status to other antibiotic agents; Z88.8 Allergy status to other drugs, medicaments and biological substances; Z88.6 Allergy status to analgesic agent; Z88.2 Allergy status to sulfonamides; I25.2 Old myocardial infarction; H54.7 Unspecified visual loss; Z95.5 Presence of coronary angioplasty implant and graft; Z87.01 Personal history of pneumonia (recurrent); Z99.2 Dependence on renal dialysis; Z86.16 Personal history of COVID-19
CPT/HCPCS: 36415; 71046; 80053; 81001; 83605; 83690; 83735; 84484; 85025; 85610; 86140; 87040 ×2; 87086; 87186; 93005; 96365; 99285; J2185; J7030; 80048; 82947; 93010; 97161-GP; 99215; 99223; 99239; A9270-GY; J1644; J1650; J1720; J7120; J7507; J7512

== ENCOUNTER 2021-09-20 12:05 | Inpatient (IN) | payer MEDICARE, OTHER ==
[2021-09-20] MEDS ORDERED: Polyethylene Glycol 3350 Powder 17 GM Packet PO PRN (13:27)
[2021-09-20] MEDS ORDERED: Lactated Ringers 1,000 ML IV SCH (13:30)
[2021-09-20] MEDS ORDERED: Benzonatate 100 MG Cap PO PRN (13:35)
[2021-09-20] MEDS ORDERED: Ondansetron 4 MG Tab.DIS PO PRN (14:00)
[2021-09-20] MEDS ORDERED: Acetaminophen 325 MG Tab PO PRN (14:00)
[2021-09-20] MEDS: Heparin Sodium 5,000 Units/ML Vial SUBCUT SCH ×2 (14:38→22:41)
[2021-09-20] MEDS: Sodium Bicarbonate 650 MG Tab PO SCH (17:49)
[2021-09-20] MEDS: Tacrolimus 0.5 MG Cap PO SCH (20:22)
[2021-09-20] MEDS: MYCOPHENOLATE SOD 180 MG PO SCH (20:23)
[2021-09-20] MEDS: Simvastatin 10 MG Tab PO SCH (20:23)
[2021-09-20] MEDS: Latanoprost 0.005% Ophth Soln 2.5 ML Bottle EYEBOTH SCH (20:24)
[2021-09-21] MEDS: Heparin Sodium 5,000 Units/ML Vial SUBCUT SCH ×3 (06:08→22:20)
[2021-09-21] MEDS: Sodium Chloride 0.9% 10 ML Syringe FLUSH PRN ×2 (08:33→20:24)
[2021-09-21 08:35] LABS: ANION GAP 14.7 meq/L (7-15)
[2021-09-21] MEDS: Ertapenem 1 GM in Sodium Chloride 0.9% 100 ML IV SCH (08:38)
[2021-09-21] MEDS: MYCOPHENOLATE SOD 180 MG PO SCH ×2 (08:39→20:18)
[2021-09-21] MEDS: Sodium Bicarbonate 650 MG Tab PO SCH ×2 (08:40→18:19)
[2021-09-21] MEDS: predniSONE 5 MG Tab PO SCH (08:40)
[2021-09-21] MEDS: Multivitamin Tab PO SCH (08:40)
[2021-09-21] MEDS: Pantoprazole 40 MG Tab.CR PO SCH (08:40)
[2021-09-21] MEDS: Aspirin 81 MG Tab.EC PO SCH (08:40)
[2021-09-21] MEDS: Tacrolimus 0.5 MG Cap PO SCH ×2 (08:41→20:17)
[2021-09-21] MEDS: Cholecalciferol (Vitamin D3) 25 MCG Tab PO SCH (08:42)
[2021-09-21] MEDS: Latanoprost 0.005% Ophth Soln 2.5 ML Bottle EYEBOTH SCH (20:16)
[2021-09-21] MEDS: Simvastatin 10 MG Tab PO SCH (20:17)
[2021-09-22] MEDS: Ertapenem 1 GM in Sodium Chloride 0.9% 100 ML IV SCH (08:08)
[2021-09-22] MEDS: Heparin Sodium 5,000 Units/ML Vial SUBCUT SCH ×3 (08:08→21:35)
[2021-09-22] MEDS: Tacrolimus 0.5 MG Cap PO SCH ×2 (08:08→20:19)
[2021-09-22] MEDS: Pantoprazole 40 MG Tab.CR PO SCH (08:09)
[2021-09-22] MEDS: MYCOPHENOLATE SOD 180 MG PO SCH ×2 (08:09→20:17)
[2021-09-22] MEDS: Multivitamin Tab PO SCH (08:09)
[2021-09-22] MEDS: Sodium Bicarbonate 650 MG Tab PO SCH ×2 (08:09→17:15)
[2021-09-22] MEDS: Cholecalciferol (Vitamin D3) 25 MCG Tab PO SCH (08:09)
[2021-09-22] MEDS: Aspirin 81 MG Tab.EC PO SCH (08:09)
[2021-09-22] MEDS: predniSONE 5 MG Tab PO SCH (08:10)
[2021-09-22] MEDS: Sodium Chloride 0.9% 10 ML Syringe FLUSH PRN (08:21)
[2021-09-22] MEDS: Latanoprost 0.005% Ophth Soln 2.5 ML Bottle EYEBOTH SCH (20:16)
[2021-09-22] MEDS: Simvastatin 10 MG Tab PO SCH (20:18)
[2021-09-23] MEDS: Heparin Sodium 5,000 Units/ML Vial SUBCUT SCH ×3 (06:09→21:13)
[2021-09-23] MEDS: Aspirin 81 MG Tab.EC PO SCH (08:10)
[2021-09-23] MEDS: Tacrolimus 0.5 MG Cap PO SCH ×2 (08:10→21:13)
[2021-09-23] MEDS: MYCOPHENOLATE SOD 180 MG PO SCH ×2 (08:10→21:14)
[2021-09-23] MEDS: Sodium Bicarbonate 650 MG Tab PO SCH ×2 (08:11→17:08)
[2021-09-23] MEDS: predniSONE 5 MG Tab PO SCH (08:11)
[2021-09-23] MEDS: Cholecalciferol (Vitamin D3) 25 MCG Tab PO SCH (08:11)
[2021-09-23] MEDS: Multivitamin Tab PO SCH (08:11)
[2021-09-23] MEDS: Pantoprazole 40 MG Tab.CR PO SCH (08:11)
[2021-09-23] MEDS: Sodium Chloride 0.9% 10 ML Syringe FLUSH PRN (08:12)
[2021-09-23] MEDS: Ertapenem 1 GM in Sodium Chloride 0.9% 100 ML IV SCH (08:12)
[2021-09-23 08:24] LABS: ANION GAP 11.8 meq/L (7-15)
[2021-09-23] MEDS: Latanoprost 0.005% Ophth Soln 2.5 ML Bottle EYEBOTH SCH (21:13)
[2021-09-23] MEDS: Simvastatin 10 MG Tab PO SCH (21:15)
[2021-09-24] MEDS: Heparin Sodium 5,000 Units/ML Vial SUBCUT SCH ×3 (06:25→21:18)
[2021-09-24 08:28] LABS: ANION GAP 14.2 meq/L (7-15)
[2021-09-24] MEDS: Sodium Bicarbonate 650 MG Tab PO SCH ×2 (08:48→17:44)
[2021-09-24] MEDS: Pantoprazole 40 MG Tab.CR PO SCH (08:49)
[2021-09-24] MEDS: MYCOPHENOLATE SOD 180 MG PO SCH ×2 (08:49→21:16)
[2021-09-24] MEDS: Aspirin 81 MG Tab.EC PO SCH (08:49)
[2021-09-24] MEDS: Cholecalciferol (Vitamin D3) 25 MCG Tab PO SCH (08:49)
[2021-09-24] MEDS: Multivitamin Tab PO SCH (08:50)
[2021-09-24] MEDS: Tacrolimus 0.5 MG Cap PO SCH ×2 (08:50→21:16)
[2021-09-24] MEDS: predniSONE 5 MG Tab PO SCH (08:51)
[2021-09-24] MEDS: Ertapenem 1 GM in Sodium Chloride 0.9% 100 ML IV SCH (08:51)
[2021-09-24] MEDS: Sodium Chloride 0.9% 10 ML Syringe FLUSH PRN (08:59)
[2021-09-24] MEDS: Simvastatin 10 MG Tab PO SCH (21:17)
[2021-09-24] MEDS: Latanoprost 0.005% Ophth Soln 2.5 ML Bottle EYEBOTH SCH (21:18)
[2021-09-25] MEDS: Heparin Sodium 5,000 Units/ML Vial SUBCUT SCH ×3 (06:27→21:13)
[2021-09-25] MEDS: Ertapenem 1 GM in Sodium Chloride 0.9% 100 ML IV SCH (07:39)
[2021-09-25] MEDS: MYCOPHENOLATE SOD 180 MG PO SCH ×2 (07:40→21:12)
[2021-09-25] MEDS: Aspirin 81 MG Tab.EC PO SCH (07:40)
[2021-09-25] MEDS: Sodium Bicarbonate 650 MG Tab PO SCH ×2 (07:41→17:42)
[2021-09-25] MEDS: Tacrolimus 0.5 MG Cap PO SCH ×2 (07:41→21:12)
[2021-09-25] MEDS: Multivitamin Tab PO SCH (07:41)
[2021-09-25] MEDS: Pantoprazole 40 MG Tab.CR PO SCH (07:41)
[2021-09-25] MEDS: predniSONE 5 MG Tab PO SCH (07:42)
[2021-09-25] MEDS: Cholecalciferol (Vitamin D3) 25 MCG Tab PO SCH (07:42)
[2021-09-25 08:45] VITALS: BP 138/70; PULSE 59
[2021-09-25 09:24] LABS: ANION GAP 12.4 meq/L (7-15)
[2021-09-25] MEDS: Simvastatin 10 MG Tab PO SCH (21:12)
[2021-09-25] MEDS: Latanoprost 0.005% Ophth Soln 2.5 ML Bottle EYEBOTH SCH (21:13)
[2021-09-26] MEDS: Heparin Sodium 5,000 Units/ML Vial SUBCUT SCH (06:10)
[2021-09-26] MEDS: Tacrolimus 0.5 MG Cap PO SCH (07:47)
[2021-09-26] MEDS: MYCOPHENOLATE SOD 180 MG PO SCH (07:47)
[2021-09-26] MEDS: Multivitamin Tab PO SCH (07:48)
[2021-09-26] MEDS: Aspirin 81 MG Tab.EC PO SCH (07:48)
[2021-09-26] MEDS: predniSONE 5 MG Tab PO SCH (07:48)
[2021-09-26] MEDS: Pantoprazole 40 MG Tab.CR PO SCH (07:48)
[2021-09-26] MEDS: Sodium Bicarbonate 650 MG Tab PO SCH (07:48)
[2021-09-26] MEDS: Ertapenem 1 GM in Sodium Chloride 0.9% 100 ML IV SCH (07:49)
[2021-09-26] MEDS: Sodium Chloride 0.9% 10 ML Syringe FLUSH PRN (07:49)
[2021-09-26] MEDS: Cholecalciferol (Vitamin D3) 25 MCG Tab PO SCH (07:50)
== END 2021-09-26 10:00 | disposition home or self-care (01) | DRG 690 ==
LOC: LL.MS 12:05
PROVIDERS: ADMIT Hospitalist; ATTEND Hospitalist
DX: N39.0 Urinary tract infection, site not specified (principal); N17.9 Acute kidney failure, unspecified; Z94.0 Kidney transplant status; D84.9 Immunodeficiency, unspecified; I50.32 Chronic diastolic (congestive) heart failure; I13.0 Hypertensive heart and chronic kidney disease with heart failure and stage 1 through stage 4 chronic kidney disease, or unspecified chronic kidney disease; N18.30 Chronic kidney disease, stage 3 unspecified; E86.0 Dehydration; R53.1 Weakness; U09.9 Post COVID-19 condition, unspecified; L89.322 Pressure ulcer of left buttock, stage 2; E66.9 Obesity, unspecified; Z91.14 Patient's other noncompliance with medication regimen; Z68.33 Body mass index [BMI] 33.0-33.9, adult
CPT/HCPCS: 36415; 80048; 85027; 97110-GO; 97110-GP; 97162-GP; 97166-GO; 97530-GO; 97530-GP; 97535-GO; A9270-GY; J1335; J1644; J7120; J7507; J7512; J7518

== ENCOUNTER → 2022-05-07 | Emergency (ER) | payer MEDICARE, OTHER ==
[2022-05-24 13:34] LABS: ANION GAP 12.3 meq/L (7-15); CHLORIDE,CL 102 mmol/L (98-107); SODIUM,NA 136 mmol/L (136-145)
[2022-05-24 13:35] LABS: ESTIMATED GFR 30 mL/min (>=60)
[2022-05-24 13:41] LABS: CORONAVIRUS COVID-19 NAA NEGATIVE (NEGATIVE); RESPIRATORY SYNCYTIAL VIR NAA NEGATIVE (NEGATIVE)
== END ==
LOC: LL.ED 10:40
DX: I50.9 Heart failure, unspecified (principal); N18.30 Chronic kidney disease, stage 3 unspecified; D63.1 Anemia in chronic kidney disease; I25.10 Atherosclerotic heart disease of native coronary artery without angina pectoris; I25.2 Old myocardial infarction; E11.22 Type 2 diabetes mellitus with diabetic chronic kidney disease; Z20.822 Contact with and (suspected) exposure to COVID-19
CPT/HCPCS: 0241U; 36415; 71046; 74019; 80053; 81001; 81003; 83605; 83735; 83880; 85025; 85379; 87040; 87086; 87088; 87186; 96374; 99285

== ENCOUNTER 2023-01-17 10:36 | Emergency (ER) | payer MEDICARE, OTHER ==
[2023-01-17 11:55] LABS: BASOPHILS ABSOLUTE AUTO 0.01 K/uL (0.00-0.20); BASOPHILS PERCENT AUTO 0.2 % (0.0-2.0); EOSINOPHILS ABSOLUTE AUTO 0.06 K/uL (0.00-0.50); HEMOGLOBIN 8.3 g/dL (13.1-16.8); LYMPHOCYTES ABSOLUTE AUTO 0.19 K/uL (0.50-3.50); MEAN CORPUSCULAR HEMOGLOBIN 28.4 pg (28.2-33.3); MEAN CORPUSCULAR HGB CONC 30.7 g/dL (31.7-36.0); MEAN CORPUSCULAR VOLUME 92.5 fL (84.0-98.0); MONOCYTES ABSOLUTE AUTO 0.23 K/uL (0.00-1.00); MONOCYTES PERCENT AUTO 3.7 % (2.0-14.0); NEUTROPHILS PERCENT AUTO 92.1 % (45.0-80.0); PLATELET COUNT,PLT 182 K/uL (150-350); RED BLOOD CELL COUNT 2.92 M/uL (4.33-5.41); WHITE BLOOD CELL COUNT,WBC 6.3 K/uL (4.0-10.2)
[2023-01-17] MEDS ORDERED: Sodium Chloride 0.9% 10 ML Syringe FLUSH PRN (12:20)
[2023-01-17] MEDS: Sodium Chloride 0.9% 1,000 ML IV SCH (12:24)
[2023-01-17 12:43] LABS: APPEARANCE,URINE SLIGHTLY CLOUDY; BILIRUBIN,URINE NEGATIVE (NEGATIVE); COLOR,URINE LIGHT YELLOW; GLUCOSE,URINE NEGATIVE (NEGATIVE); KETONES,URINE NEGATIVE (NEGATIVE); LEUKOCYTE ESTERASE,URINE MODERATE (NEGATIVE); NITRITE,URINE POSITIVE (NEGATIVE); OCCULT BLOOD,URINE SMALL (NEGATIVE); PH,URINE 6.5 (5.0-9.0); PROTEIN,URINE 100 mg/dL (NEGATIVE); UROBILINOGEN,URINE 0.2 E.U./dL (0.2-1.0)
[2023-01-17 12:50] LABS: BACTERIA,URINE MODERATE /HPF (NONE TO FEW)
[2023-01-17 12:52] LABS: EPITHELIAL CELLS,URINE MODERATE /LPF; MUCUS,URINE OCCASIONAL /LPF (NEGATIVE); WBC,URINE 40-50 /HPF
[2023-01-17 18:05] VITALS: BP 118/68; PULSE 69
== END 2023-01-17 18:35 ==
LOC: LL.ED 10:36
DX: R74.8 Abnormal levels of other serum enzymes (principal); N39.0 Urinary tract infection, site not specified; I25.2 Old myocardial infarction; I12.9 Hypertensive chronic kidney disease with stage 1 through stage 4 chronic kidney disease, or unspecified chronic kidney disease; E10.22 Type 1 diabetes mellitus with diabetic chronic kidney disease; N18.9 Chronic kidney disease, unspecified; Z87.891 Personal history of nicotine dependence; Z88.1 Allergy status to other antibiotic agents; Z88.8 Allergy status to other drugs, medicaments and biological substances; Z88.6 Allergy status to analgesic agent; Z88.2 Allergy status to sulfonamides; Z79.82 Long term (current) use of aspirin; Z79.899 Other long term (current) drug therapy
CPT/HCPCS: 36415; 71045; 74176; 81001; 83605; 83880; 85025; 87086; 96360; 96361; 99284; 99285-25; J7030

== ENCOUNTER 2023-02-09 10:04 | Emergency (ER) | payer MEDICARE, OTHER ==
[2023-02-09 10:33] LABS: APPEARANCE,URINE SLIGHTLY CLOUDY; BILIRUBIN,URINE NEGATIVE (NEGATIVE); COLOR,URINE LIGHT YELLOW; GLUCOSE,URINE NEGATIVE (NEGATIVE); KETONES,URINE NEGATIVE (NEGATIVE); LEUKOCYTE ESTERASE,URINE LARGE (NEGATIVE); NITRITE,URINE NEGATIVE (NEGATIVE); OCCULT BLOOD,URINE TRACE-INTACT (NEGATIVE); PROTEIN,URINE 100 mg/dL (NEGATIVE); UROBILINOGEN,URINE 0.2 E.U./dL (0.2-1.0)
[2023-02-09 10:48] LABS: BASOPHILS ABSOLUTE AUTO 0.02 K/uL (0.00-0.20); BASOPHILS PERCENT AUTO 0.1 % (0.0-2.0); EOSINOPHILS ABSOLUTE AUTO 0.02 K/uL (0.00-0.50); EOSINOPHILS PERCENT AUTO 0.1 % (0.0-5.0); HEMATOCRIT 30.8 % (39.0-49.0); LYMPHOCYTES ABSOLUTE AUTO 0.25 K/uL (0.50-3.50); LYMPHOCYTES PERCENT AUTO 1.4 % (10.0-50.0); MEAN CORPUSCULAR HEMOGLOBIN 28.5 pg (28.2-33.3); MEAN CORPUSCULAR HGB CONC 29.2 g/dL (31.7-36.0); MEAN CORPUSCULAR VOLUME 97.5 fL (84.0-98.0); MONOCYTES ABSOLUTE AUTO 1.19 K/uL (0.00-1.00); MONOCYTES PERCENT AUTO 6.5 % (2.0-14.0); NEUTROPHILS ABSOLUTE AUTO 16.83 K/uL (1.40-7.00); NEUTROPHILS PERCENT AUTO 91.9 % (45.0-80.0); PLATELET COUNT,PLT 294 K/uL (150-350); RED BLOOD CELL COUNT 3.16 M/uL (4.33-5.41); RED CELL DISTRIBUTION WIDTH 18.3 % (11.2-14.1); WHITE BLOOD CELL COUNT,WBC 18.3 K/uL (4.0-10.2)
[2023-02-09 10:51] LABS: BACTERIA,URINE MODERATE /HPF (NONE TO FEW); RBC,URINE 0-5 /HPF; WBC,URINE 50-75 /HPF
[2023-02-09 10:52] LABS: MUCUS,URINE MODERATE /LPF (NEGATIVE)
[2023-02-09 10:53] LABS: EPITHELIAL CELLS,URINE MODERATE /LPF
[2023-02-09] MEDS: Ondansetron 4 MG Tab.DIS PO ONE (10:59)
[2023-02-09 11:07] LABS: ALBUMIN 3.7 g/dL (3.4-5.0); BILIRUBIN TOTAL 0.5 mg/dL (0.2-1.0); CALCIUM 8.4 mg/dL (8.5-10.1); CARBON DIOXIDE,CO2 20.8 mmol/L (21.0-32.0); EST CRCL DRUG DOSING (CG) 23.05 mL/min; PROTEIN TOTAL,TP 6.5 g/dL (6.4-8.2)
[2023-02-09 11:09] LABS: ANION GAP 15.1 meq/L (7-15)
[2023-02-09 11:13] LABS: CREATININE 3.11 mg/dL (0.51-1.17); POTASSIUM,K 5.9 mmol/L (3.5-5.1)
[2023-02-09] MEDS ORDERED: Sodium Chloride 0.9% 10 ML Syringe FLUSH PRN (12:13)
[2023-02-09] MEDS: Sodium Chloride 0.9% 10 ML Syringe FLUSH PRN (12:50)
[2023-02-09] MEDS: VANCOmycin 1.5 GM/300 ML 1.5 GM in Premix Bag 1 BAG IV ONE (12:53)
[2023-02-09 15:18] VITALS: BP 124/81; PULSE 73
== END 2023-02-09 15:28 | disposition home or self-care (01) ==
LOC: LL.ED 10:04
DX: K29.70 Gastritis, unspecified, without bleeding (principal); I25.2 Old myocardial infarction; I12.9 Hypertensive chronic kidney disease with stage 1 through stage 4 chronic kidney disease, or unspecified chronic kidney disease; E10.22 Type 1 diabetes mellitus with diabetic chronic kidney disease; N18.9 Chronic kidney disease, unspecified; Z48.01 Encounter for change or removal of surgical wound dressing; Z79.899 Other long term (current) drug therapy; Z79.82 Long term (current) use of aspirin; Z88.1 Allergy status to other antibiotic agents; Z88.8 Allergy status to other drugs, medicaments and biological substances; Z88.6 Allergy status to analgesic agent; Z88.2 Allergy status to sulfonamides
CPT/HCPCS: 36415; 80053; 81001; 83605; 85025; 87086; 87088; 87186; 96365; 99211; 99284; 99285-25; A9270-GY; J3370; J3490

== ENCOUNTER 2023-10-17 12:35 | Emergency (ER) | payer MEDICARE, OTHER ==
[2023-10-17] MEDS ORDERED: Sodium Chloride 0.9% 10 ML Syringe FLUSH PRN (12:53)
[2023-10-17 13:51] LABS: BASOPHILS ABSOLUTE AUTO 0.02 K/uL (0.00-0.20); BASOPHILS PERCENT AUTO 0.3 % (0.0-2.0); EOSINOPHILS ABSOLUTE AUTO 0.02 K/uL (0.00-0.50); EOSINOPHILS PERCENT AUTO 0.3 % (0.0-5.0); HEMATOCRIT 30.3 % (39.0-49.0); HEMOGLOBIN 9.1 g/dL (13.1-16.8); LYMPHOCYTES ABSOLUTE AUTO 0.21 K/uL (0.50-3.50); LYMPHOCYTES PERCENT AUTO 2.9 % (10.0-50.0); MEAN CORPUSCULAR HEMOGLOBIN 28.2 pg (28.2-33.3); MEAN CORPUSCULAR VOLUME 93.8 fL (84.0-98.0); MONOCYTES ABSOLUTE AUTO 0.36 K/uL (0.00-1.00); MONOCYTES PERCENT AUTO 4.9 % (2.0-14.0); NEUTROPHILS PERCENT AUTO 91.6 % (45.0-80.0); PLATELET COUNT,PLT 150 K/uL (150-350); RED BLOOD CELL COUNT 3.23 M/uL (4.33-5.41); RED CELL DISTRIBUTION WIDTH 15.4 % (11.2-14.1); WHITE BLOOD CELL COUNT,WBC 7.3 K/uL (4.0-10.2)
[2023-10-17 16:55] VITALS: BP 129/52; PULSE 70
== END 2023-10-17 16:16 ==
LOC: SUPCPDRO 12:35 → LL.ED 12:35
DX: I50.9 Heart failure, unspecified (principal); N28.9 Disorder of kidney and ureter, unspecified; R79.89 Other specified abnormal findings of blood chemistry; I10 Essential (primary) hypertension; I25.2 Old myocardial infarction; E10.9 Type 1 diabetes mellitus without complications; Z88.2 Allergy status to sulfonamides; Z88.8 Allergy status to other drugs, medicaments and biological substances; Z79.2 Long term (current) use of antibiotics; Z79.82 Long term (current) use of aspirin; Z79.899 Other long term (current) drug therapy
CPT/HCPCS: 36415; 83605; 84484; 85025; 93010; 99284; 99285

== ENCOUNTER 2023-12-15 11:48 | Emergency (ER) | payer MEDICARE, OTHER ==
[2023-12-15 13:03] LABS: BASOPHILS ABSOLUTE AUTO 0.01 K/uL (0.00-0.20); BASOPHILS PERCENT AUTO 0.1 % (0.0-2.0); EOSINOPHILS ABSOLUTE AUTO 0.04 K/uL (0.00-0.50); EOSINOPHILS PERCENT AUTO 0.2 % (0.0-5.0); HEMATOCRIT 31.9 % (39.0-49.0); HEMOGLOBIN 9.7 g/dL (13.1-16.8); LYMPHOCYTES ABSOLUTE AUTO 0.27 K/uL (0.50-3.50); LYMPHOCYTES PERCENT AUTO 1.6 % (10.0-50.0); MEAN CORPUSCULAR HEMOGLOBIN 29.3 pg (28.2-33.3); MEAN CORPUSCULAR HGB CONC 30.4 g/dL (31.7-36.0); MEAN CORPUSCULAR VOLUME 96.4 fL (84.0-98.0); MONOCYTES ABSOLUTE AUTO 1.27 K/uL (0.00-1.00); MONOCYTES PERCENT AUTO 7.7 % (2.0-14.0); NEUTROPHILS PERCENT AUTO 90.4 % (45.0-80.0); PLATELET COUNT,PLT 229 K/uL (150-350); RED BLOOD CELL COUNT 3.31 M/uL (4.33-5.41); WHITE BLOOD CELL COUNT,WBC 16.4 K/uL (4.0-10.2)
[2023-12-15 13:28] LABS: ALANINE AMINOTRANSFERASE,ALT 13 U/L (12-78); ALBUMIN 3.4 g/dL (3.4-5.0); ALKALINE PHOSPHATASE 81 IU/L (46-116); ASPARTATE AMNIOTRANSFERASE,AST 11 U/L (15-37); BILIRUBIN TOTAL 0.4 mg/dL (0.2-1.0); BLOOD UREA NITROGEN,BUN 42 mg/dL (7-18); CALCIUM 7.9 mg/dL (8.5-10.1); CARBON DIOXIDE,CO2 23.4 mmol/L (21.0-32.0); CHLORIDE,CL 94 mmol/L (98-107); GLUCOSE RANDOM 158 mg/dL (70-99); MAGNESIUM 1.9 mg/dL (1.8-2.4); POTASSIUM,K 4.8 mmol/L (3.5-5.1); PRO B-TYPE NATRIUR PEPT,BNPPRO 18439 pg/mL (0-125); PROTEIN TOTAL,TP 6.7 g/dL (6.4-8.2); SODIUM,NA 128 mmol/L (136-145)
[2023-12-15 13:29] LABS: ANION GAP 15.4 meq/L (7-15)
[2023-12-15 13:30] LABS: CREATININE 5.04 mg/dL (0.51-1.17); ESTIMATED GFR 12 mL/min (>=60)
[2023-12-15] MEDS: Ondansetron 4 MG/2 ML SDV IVPUSH ONE ×2 (13:31→16:03)
[2023-12-15] MEDS: Sodium Chloride 0.9% 10 ML Syringe FLUSH PRN (13:32)
[2023-12-15 13:51] LABS: APPEARANCE,URINE SLIGHTLY CLOUDY; BILIRUBIN,URINE NEGATIVE (NEGATIVE); COLOR,URINE YELLOW; GLUCOSE,URINE NEGATIVE (NEGATIVE); KETONES,URINE NEGATIVE (NEGATIVE); LEUKOCYTE ESTERASE,URINE LARGE (NEGATIVE); NITRITE,URINE NEGATIVE (NEGATIVE); OCCULT BLOOD,URINE SMALL (NEGATIVE); PH,URINE 8.5 (5.0-9.0); PROTEIN,URINE 100 mg/dL (NEGATIVE); UROBILINOGEN,URINE 0.2 E.U./dL (0.2-1.0)
[2023-12-15 13:59] LABS: BACTERIA,URINE FEW /HPF (NONE TO FEW); EPITHELIAL CELLS,URINE RARE /LPF; WBC,URINE 40-50 /HPF
[2023-12-15] MEDS: cefTRIAXone 1 GM in Sodium Chloride 0.9% 100 ML IV ONE (14:52)
[2023-12-15 15:26] VITALS: BP 155/61; PULSE 76
== END 2023-12-15 16:05 ==
LOC: LL.ED 11:48
DX: I13.0 Hypertensive heart and chronic kidney disease with heart failure and stage 1 through stage 4 chronic kidney disease, or unspecified chronic kidney disease (principal); N18.9 Chronic kidney disease, unspecified; I50.9 Heart failure, unspecified; N39.0 Urinary tract infection, site not specified; E87.1 Hypo-osmolality and hyponatremia; I25.2 Old myocardial infarction; E10.9 Type 1 diabetes mellitus without complications; Z88.1 Allergy status to other antibiotic agents; Z88.6 Allergy status to analgesic agent; Z88.2 Allergy status to sulfonamides; Z79.82 Long term (current) use of aspirin; Z79.899 Other long term (current) drug therapy; Z79.02 Long term (current) use of antithrombotics/antiplatelets; Z95.5 Presence of coronary angioplasty implant and graft; Z99.2 Dependence on renal dialysis; W19.XXXA Unspecified fall, initial encounter
CPT/HCPCS: 36415; 71046; 72220; 80053; 81001; 83605; 83735; 83880; 84484; 85025; 85379; 87040; 87086; 87088; 87186; 93005; 96365; 96375; 96376; 99285-25; J0696; J2405; J3490

== ENCOUNTER 2024-02-01 14:15 | Inpatient (IN) | payer MEDICARE, OTHER ==
[2024-02-01] MEDS: Cefepime 2 GM Vial IVPUSH ONE (15:07)
[2024-02-01] MEDS: Sodium Chloride 0.9% 10 ML Syringe FLUSH PRN (15:07)
[2024-02-01 15:18] LABS: ALANINE AMINOTRANSFERASE,ALT 22 U/L (12-78); ALBUMIN 3.5 g/dL (3.4-5.0); ALKALINE PHOSPHATASE 88 IU/L (46-116); ANION GAP 16.6 meq/L (7-15); ASPARTATE AMNIOTRANSFERASE,AST 15 U/L (15-37); BILIRUBIN TOTAL 0.4 mg/dL (0.2-1.0); BLOOD UREA NITROGEN,BUN 38 mg/dL (7-18); C-REACTIVE PROTEIN 3.72 mg/dL (0.05-0.30); CALCIUM 7.9 mg/dL (8.5-10.1); CARBON DIOXIDE,CO2 24.7 mmol/L (21.0-32.0); CHLORIDE,CL 97 mmol/L (98-107); GLUCOSE RANDOM 166 mg/dL (70-99); POTASSIUM,K 4.3 mmol/L (3.5-5.1); PROTEIN TOTAL,TP 6.7 g/dL (6.4-8.2); SODIUM,NA 134 mmol/L (136-145)
[2024-02-01 15:20] LABS: CREATININE 3.59 mg/dL (0.51-1.17); ESTIMATED GFR 18 mL/min (>=60)
[2024-02-01 15:21] LABS: INR 1.1 (0.9-1.1); PROTHROMBIN TIME 10.5 SEC (9.0-11.1); PTT,PARTIAL THROMBOPLSTIN TIME 27.3 SEC (23.6-29.8)
[2024-02-01 15:22] LABS: LACTIC ACID 2.5 mmol/L (0.4-2.0)
[2024-02-01] MEDS: Lactated Ringers 1,000 ML IV SCH (15:47)
[2024-02-01] MEDS: VANCOmycin 1.5 GM/300 ML 1.5 GM in Premix Bag 1 BAG IV ONE (15:47)
[2024-02-01] MEDS: Cefepime 2 GM in Sodium Chloride 0.9% 50 ML IV ONE (15:49)
[2024-02-01] MEDS ORDERED: Ondansetron 4 MG Tab.DIS PO PRN (17:42)
[2024-02-01] MEDS ORDERED: Nystatin Topical Powder 15 GM Bottle TOP PRN (17:47)
[2024-02-01] MEDS ORDERED: Benzonatate 100 MG Cap PO PRN (17:47)
[2024-02-01] MEDS ORDERED: Furosemide 20 MG Tab PO PRN ×2 (17:47→18:02)
[2024-02-01] MEDS ORDERED: Midodrine 5 MG Tab PO PRN (17:47)
[2024-02-01] MEDS ORDERED: Hydrocortisone 2.5% Crm 30 GM Tube TOP PRN (17:47)
[2024-02-01] MEDS: Famotidine 10 MG Tab PO SCH (19:31)
[2024-02-01] MEDS: atorvaSTATin 10 MG Tab PO SCH (19:31)
[2024-02-01] MEDS: Tacrolimus 0.5 MG Cap PO SCH (19:32)
[2024-02-01] MEDS: Latanoprost 0.005% Ophth Soln 2.5 ML Bottle EYEBOTH SCH (19:32)
[2024-02-01] MEDS: Calcium Carbonate 750 MG Tab.Chew PO SCH (19:32)
[2024-02-01] MEDS: Acetaminophen 325 MG Tab PO PRN (20:27)
[2024-02-01] MEDS: MYCOPHENOLATE SOD 180 MG PO SCH (21:01)
[2024-02-02 07:52] LABS: BASOPHILS ABSOLUTE AUTO 0.02 K/uL (0.00-0.20); BASOPHILS PERCENT AUTO 0.2 % (0.0-2.0); EOSINOPHILS ABSOLUTE AUTO 0.05 K/uL (0.00-0.50); EOSINOPHILS PERCENT AUTO 0.4 % (0.0-5.0); HEMOGLOBIN 8.5 g/dL (13.1-16.8); LYMPHOCYTES PERCENT AUTO 4.4 % (10.0-50.0); MEAN CORPUSCULAR HEMOGLOBIN 29.7 pg (28.2-33.3); MEAN CORPUSCULAR HGB CONC 29.3 g/dL (31.7-36.0); MEAN CORPUSCULAR VOLUME 101.4 fL (84.0-98.0); MONOCYTES ABSOLUTE AUTO 1.27 K/uL (0.00-1.00); MONOCYTES PERCENT AUTO 11.2 % (2.0-14.0); NEUTROPHILS ABSOLUTE AUTO 9.47 K/uL (1.40-7.00); NEUTROPHILS PERCENT AUTO 83.8 % (45.0-80.0); PLATELET COUNT,PLT 212 K/uL (150-350); RED BLOOD CELL COUNT 2.86 M/uL (4.33-5.41); WHITE BLOOD CELL COUNT,WBC 11.3 K/uL (4.0-10.2)
[2024-02-02 08:05] LABS: ALBUMIN 3.2 g/dL (3.4-5.0); BILIRUBIN TOTAL 0.4 mg/dL (0.2-1.0); CALCIUM 8.1 mg/dL (8.5-10.1); CARBON DIOXIDE,CO2 24.5 mmol/L (21.0-32.0); EST CRCL DRUG DOSING (CG) 19.42 mL/min; POTASSIUM,K 4.3 mmol/L (3.5-5.1); PROTEIN TOTAL,TP 6.2 g/dL (6.4-8.2)
[2024-02-02 08:10] LABS: LACTIC ACID 0.8 mmol/L (0.4-2.0)
[2024-02-02 08:28] LABS: ANION GAP 15.8 meq/L (7-15)
[2024-02-02 08:32] LABS: CREATININE 3.64 mg/dL (0.51-1.17)
[2024-02-02] MEDS: Aspirin 81 MG Tab.EC PO SCH (09:01)
[2024-02-02] MEDS: Cholecalciferol (Vitamin D3) 25 MCG Tab PO SCH (09:01)
[2024-02-02] MEDS: Multivitamin Tab PO SCH (09:01)
[2024-02-02] MEDS: predniSONE 5 MG Tab PO SCH (09:01)
[2024-02-02] MEDS: Clopidogrel 75 MG Tab PO SCH (09:01)
[2024-02-02] MEDS: Sodium Bicarbonate 650 MG Tab PO SCH (09:01)
[2024-02-02] MEDS: Cefepime 2 GM in Sodium Chloride 0.9% 100 ML IV SCH (17:07)
[2024-02-02] MEDS: Nystatin Susp 100,000 Unit/ML 5 ML UD Cup PO SCH (21:13)
[2024-02-02] MEDS: Nystatin Susp 100,000 Unit/ML 5 ML UD Cup ONE (21:37)
[2024-02-03 08:30] VITALS: BP 137/54; PULSE 67
[2024-02-03] MEDS: Nystatin Susp 100,000 Unit/ML 5 ML UD Cup PO ONE (08:31)
[2024-02-03] MEDS: Levofloxacin 500 MG Tab PO ONE (08:32)
== END 2024-02-03 09:37 | disposition home or self-care (01) | DRG 698 ==
LOC: LL.ED 14:15 → LL.MS 17:18 → UNDOADMIN 17:18 → LL.MS 17:42 → UNDODISIN 02-03 09:37
PROVIDERS: ADMIT Physician Assistant; ATTEND Family Medicine
DX: T83.512A Infection and inflammatory reaction due to nephrostomy catheter, initial encounter (principal); A41.9 Sepsis, unspecified organism; N39.0 Urinary tract infection, site not specified; B37.0 Candidal stomatitis; Z94.83 Pancreas transplant status; Z94.0 Kidney transplant status; D84.89 Other immunodeficiencies; I12.9 Hypertensive chronic kidney disease with stage 1 through stage 4 chronic kidney disease, or unspecified chronic kidney disease; N18.9 Chronic kidney disease, unspecified; E10.9 Type 1 diabetes mellitus without complications; E10.22 Type 1 diabetes mellitus with diabetic chronic kidney disease; L57.0 Actinic keratosis; I95.1 Orthostatic hypotension; E78.00 Pure hypercholesterolemia, unspecified; K59.00 Constipation, unspecified; E21.1 Secondary hyperparathyroidism, not elsewhere classified; R60.9 Edema, unspecified; R05.3 Chronic cough; R79.89 Other specified abnormal findings of blood chemistry; N28.9 Disorder of kidney and ureter, unspecified; Z96.698 Presence of other orthopedic joint implants; Z93.6 Other artificial openings of urinary tract status; Z99.2 Dependence on renal dialysis; Z79.82 Long term (current) use of aspirin; Z79.899 Other long term (current) drug therapy; Z79.1 Long term (current) use of non-steroidal anti-inflammatories (NSAID); Z88.2 Allergy status to sulfonamides; Z88.8 Allergy status to other drugs, medicaments and biological substances; Z88.1 Allergy status to other antibiotic agents; Z97.3 Presence of spectacles and contact lenses; I25.2 Old myocardial infarction; Z95.5 Presence of coronary angioplasty implant and graft; Z87.01 Personal history of pneumonia (recurrent); Z79.4 Long term (current) use of insulin; Z85.828 Personal history of other malignant neoplasm of skin; Z86.14 Personal history of Methicillin resistant Staphylococcus aureus infection; Y84.6 Urinary catheterization as the cause of abnormal reaction of the patient, or of later complication, without mention of misadventure at the time of the procedure; Y92.89 Other specified places as the place of occurrence of the external cause
CPT/HCPCS: 36415; 71046; 80053; 81001; 83605; 84145; 84484; 85025; 85610; 85730; 86140; 87040; 87086; 87088; 93005; 93010; 96365; 96375; 99211; 99214; 99223; 99233; 99238; 99285-25; A9270-GY; J0692; J3370; J3372; J3490; J7050; J7120; J7507; J7512; J7518